=== PATIENT | female | born 1950 | race Caucasian/White ===

== ENCOUNTER → 2016-03-17 | Outpatient (CLI) | payer OTHER ==
[~2016-03-17] MED LIST: AMLO2.5T PO; ESTR1TAB3 PO; PROAIR HFA8.5 GM IH
--- NOTE | 2016-03-17 16:38 | KCIC ---
PROCEDURE Two-view chest. HISTORY Persistent dry cough. Influenza A last week. COMPARISON None. FINDINGS Cardiomediastinal silhouette is normal. There are bilateral perihilar reticular opacities. No pleural effusion or pneumothorax. There is right-sided lumbar fusion hardware, partially seen. IMPRESSION Bilateral perihilar reticular opacities. Bronchitis or atypical pneumonia or mild edema are considerations. Suggest radiographic follow-up. Electronically signed by: Papito Mcgrath MD (Mar 17, 2016 16:37:20)
== END | disposition home or self-care (01) ==
LOC: KCIC 16:05
PROVIDERS: ATTEND Physician Assistant Medical
DX: J40 Bronchitis, not specified as acute or chronic (principal); J18.9 Pneumonia, unspecified organism; J11.1 Influenza due to unidentified influenza virus with other respiratory manifestations; M43.26 Fusion of spine, lumbar region; R60.9 Edema, unspecified
CPT/HCPCS: 71020

== ENCOUNTER → 2016-03-31 | Outpatient (CLI) | payer OTHER ==
[~2016-03-31] MED LIST changes: +IOHEXOL 300 MG/ML 100ML VIAL. IV ONE
--- NOTE | 2016-03-31 16:12 | KCIC ---
PROCEDURE CT chest with contrast. HISTORY Influenza A, pneumonia. Cough. Abnormal chest radiograph. TECHNIQUE Helical CT imaging of the chest is performed after 95 cc Omnipaque 300 IV contrast. PQRS: One or more the following individualized dose reduction techniques were utilized for the study: 1. Automated exposure control. 2. Adjustment of the mA and/or kV according to patient size. 3. Use of iterative reconstruction technique. COMPARISON Two-view chest, March 17, 2016. FINDINGS Thyroid is symmetric. Bilateral breast implants are intact. There are sub centimeter mediastinal lymph nodes and left hilar lymph nodes. There is no adenopathy. Cardiac size normal, no pericardial effusion. Great vessels are normal caliber. No pleural effusion. Central airways are patent. There are patchy ground-glass opacities in the upper lobes mainly anteriorly. No lung consolidation is seen. No micro nodules are identified. Gallbladder is contracted. Visualized abdomen otherwise unremarkable. Posterior fusion hardware on the right of L2, partially seen. Degenerative endplate spurring in the thoracic spine. IMPRESSION Mild patchy ground-glass opacities in the upper lobes mainly anteriorly. Given history, the opacities are probably infectious/inflammatory. There has likely been improvement since the chest radiograph. Recommend noncontrast CT chest in a few months to document resolution. Electronically signed by: Papito Mcgrath MD (Mar 31, 2016 16:11:43)
== END | disposition home or self-care (01) ==
LOC: KCIC CT 15:28
PROVIDERS: ATTEND Physician Assistant Medical
DX: J98.4 Other disorders of lung (principal); R59.0 Localized enlarged lymph nodes
CPT/HCPCS: 71260; Q9967

== ENCOUNTER → 2016-04-04 | Outpatient (CLI) | payer OTHER ==
[~2016-04-04] MED LIST changes: -IOHEXOL 300 MG/ML 100ML VIAL. IV ONE
--- NOTE | 2016-04-07 16:11 | KCIC ---
Bilateral digital screening mammograms with CAD: HISTORY COMPARISON Comparison is made to previous studies dated back to 05/22/2013. FINDINGS Breast density category B. The skin and nipples show no abnormalities. No abnormal lymph nodes are seen in the axilla. Bilateral breast implants remain in place and show no definite change. The breast parenchyma shows scattered fibroglandular density. There continues to be a small nodular density posteriorly at the level of the nipple adjacent to the pectoralis muscle on the left obliques implant displacement view which has not shown significant interval change since 2015. There are no new dominant masses, suspicious calcifications or architectural distortions. Benign appearing calcifications are present IMPRESSION No evidence of malignancy. Recommend routine annual mammographic screening. This study was interpreted with the benefit of Computerized Aided Detection (CAD). Mammography is not 100% sensitive in detecting breast cancer. Therefore, a self breast exam and a clinical breast exam are very important. A negative mammogram does not negate a clinically suspicious finding and should not result in a delay in biopsying a clinically suspicious abnormality. BI-RADS category 2. Benign. This patient's information has been entered into a reminder system for the patient to be notified with the results of this examination and a target date for her next mammograms. Electronically signed by: Dottie Sosa MD (Apr 07, 2016 16:09:34)
== END | disposition home or self-care (01) ==
LOC: KCIC MAMMO 17:28
PROVIDERS: ATTEND Obstetrics & Gynecology
DX: Z12.31 Encounter for screening mammogram for malignant neoplasm of breast (principal)
CPT/HCPCS: G0202; 77067

== ENCOUNTER → 2016-07-29 | Outpatient (CLI) | payer OTHER ==
[~2016-07-29] MED LIST changes: +IOHEXOL 300 MG/ML 100ML VIAL. IV ONE
--- NOTE | 2016-07-29 11:37 | KCIC ---
Examination: CT chest with IV contrast HISTORY: History of follow-up abnormal CT chest, patchy opacities in the bilateral upper lobes COMPARISON: 03/28/2016 TECHNIQUE: Axial CT images of chest were performed with IV contrast. Coronal and sagittal images was performed Exposure: One or more of the following individualized dose reduction techniques were utilized for this examination: 1. Automated exposure control 2. Adjustment of the mA and/or kV according to patient size 3. Use of iterative reconstruction technique FINDINGS: The visualized thyroid gland grossly appears unremarkable. The central airways are patent. Mild cardiomegaly. Ascending aorta measures 3.4 x 3.2 cm. No evidence of pericardial effusion. The previously visualized patchy ground glass airspace opacities have near completely resolved with residual minimal tiny focus of groundglass airspace opacity identified in the right upper lobe of the lung measuring 1 cm. No evidence of pleural effusion or pneumothorax. Bilateral breast prosthesis is identified. The visualized liver, spleen, adrenals grossly appears unremarkable. Mild degenerative changes identified in thoracic spine. Partially visualized heart identified in the upper lumbar vertebra. IMPRESSION: 1. Interval near complete resolution of patchy ground glass airspace opacities in the bilateral upper lobes of the lungs. There is a residual minimal 1 cm ground glass opacity identified in the right upper lobe of the lung. Follow-up examination in 3-6 months is recommended to document stability/resolution. Electronically signed by: Miguel Albert MD (07/29/2016 11:34 AM)
== END | disposition home or self-care (01) ==
LOC: KCIC CT 10:13
PROVIDERS: ATTEND Family Medicine
DX: R05 Cough (principal); R93.8 Abnormal findings on diagnostic imaging of other specified body structures; Z87.891 Personal history of nicotine dependence
CPT/HCPCS: 71260; Q9967

== ENCOUNTER → 2016-12-19 | Outpatient (CLI) | payer MEDICARE, OTHER ==
[~2016-12-19] MED LIST changes: +APIX2.5T PO; +FAMO20TA5 PO; +HYDR-963 PO; -IOHEXOL 300 MG/ML 100ML VIAL. IV ONE; +OMEP20TA8 PO; +OXYC1TAB9 PO; +PRED50TA PO; +TRAM50TA PO
--- NOTE | 2016-12-19 14:27 | KCIC ---
Bone mineral density exam History: Postmenopausal, takes calcium supplement, osteoporosis, hysterectomy Comparison: 12/28/2005 of the left hip Findings: Bone mineral density examination utilizing DEXA was performed. Left hip bone mineral density of 0.805 g/cm2 corresponds with a T score -1.1, Z score 0.1. Compared with the previous exam, there has been -2.4% decrease. The bone mineral density of the right forearm was 0.497 g/cm2 which corresponds with a T-score of -1.3, Z score 0.4 . By World Congress on Osteoporosis criteria, a T score of 0 to-1 SD is considered to be within normal limits. A T score of -1 to -2.5 SD is considered osteopenia. A T score less than -2.5 SD is considered osteoporosis Impression: 1. There is osteopenia of the right forearm and the left hip. Electronically signed by: Darron Martin MD (12/19/2016 2:24 PM) [facility]
== END | disposition home or self-care (01) ==
LOC: KCIC DEXA 13:18
PROVIDERS: ATTEND Family Medicine
DX: M85.831 Other specified disorders of bone density and structure, right forearm (principal); M81.0 Age-related osteoporosis without current pathological fracture; Z78.0 Asymptomatic menopausal state; Z90.710 Acquired absence of both cervix and uterus
CPT/HCPCS: 77080; 77081

== ENCOUNTER 2016-12-20 08:40 | Inpatient (IN) | payer MEDICARE, OTHER ==
[2016-12-20] VITALS (8 sets, daily range): BP systolic 107–116; BP diastolic 62–71
[~2016-12-20] VITALS: Ht 160 cm; Wt 64.4 kg
[~2016-12-20 08:40] MED LIST changes: -APIX2.5T PO; +CELECOXIB 200 MG CAPSULE. PO PRN; -FAMO20TA5 PO; -HYDR-963 PO; +HYDROcodone/APAP 7.5/325MG 1 TAB TABLET PO PRN; +HYDROmorphone 2 MG/ML VIAL IV PRN; +IV RINGERS,LACTATED 1000ML 1,000 ML IV SCH; +LIDOCAINE 1% PF 2 ML VIAL. ID PRN; +MORPHINE SULFATE 5 MG, KETOROLAC 30 MG, ROPIVacaine 0.5% PF 60 ML, EPINEPHrine 0.5 MG i... INT ART ONE; +ONDANSETRON PF 4 MG/2 ML VIAL. IV PRN; -OXYC1TAB9 PO; -PRED50TA PO; +PROCHLORPERAZINE 10 MG/2 ML VIAL. IV PRN; +TRANEXAMIC ACID 1,000 MG in IV NS 50ML -- 1ST BAG INJ ONE; +TRANEXAMIC ACID 1,000 MG in IV NS 50ML -- 2ND BAG INJ ONE; +fentaNYL PF VIAL 100 MCG/2 ML VIAL IV PRN
[2016-12-20] MEDS ORDERED: SEVOFLURANE 61 TO 120 MINUTES. IH ONE (10:20)
[2016-12-20] MEDS ORDERED: PROPOFOL 20 ML IV ONE (10:20)
[2016-12-20] MEDS ORDERED: fentaNYL PF VIAL 100 MCG/2 ML VIAL ONE (10:20)
[2016-12-20] MEDS ORDERED: MIDAZOLAM HCL/PF 2 MG/2 ML VIAL. ONE (10:20)
[2016-12-20] MEDS ORDERED: ONDANSETRON PF 4 MG/2 ML VIAL. ONE (10:21)
[2016-12-20] MEDS ORDERED: DEXAMETHASONE SOD PHOS 20 MG/5 ML VIAL. ONE (10:21)
[2016-12-20] MEDS ORDERED: ROCURONIUM 50 MG/5 ML VIAL. ONE (10:23)
[2016-12-20] MEDS ORDERED: PHENYLEPHRINE in 0.9% NACL PF 1 MG/10 ML DISP.SYRIN. IV ONE (11:41)
[2016-12-20] MEDS ORDERED: fentaNYL PF VIAL 100 MCG/2 ML VIAL IV PRN ×2 (14:15)
[2016-12-20] MEDS ORDERED: traMADol 50 MG TABLET PO PRN ×2 (14:15)
[2016-12-20] MEDS ORDERED: MORPHINE SULFATE 10 MG/ML VIAL. IV PRN (14:15)
[2016-12-20] MEDS ORDERED: CALCIUM CARBONATE 500 MG TAB.CHEW PO PRN (14:15)
[2016-12-20] MEDS ORDERED: ZOLPIDEM 5 MG TABLET. PO PRN (14:15)
[2016-12-20] MEDS ORDERED: PROCHLORPERAZINE 10 MG/2 ML VIAL. IV PRN (14:15)
[2016-12-20] MEDS ORDERED: diphenhydrAMINE 50 MG/ML VIAL IV PRN (14:15)
[2016-12-20] MEDS ORDERED: oxyCODONE/APAP 5/325 1 TAB TABLET PO PRN (14:15)
[2016-12-20] MEDS ORDERED: ACETAMINOPHEN 325 MG TABLET. PO PRN (14:15)
[2016-12-20] MEDS ORDERED: MORPHINE SULFATE 4 MG/ML DISP.SYRIN. IV PRN ×3 (14:15)
[2016-12-20] MEDS ORDERED: oxyCODONE/APAP 7.5/325 1 TAB TABLET PO PRN (14:15)
[2016-12-20] MEDS ORDERED: DEXTROSE 50% 25 GM / 50ML DISP.SYRIN. IV PRN (14:15)
[2016-12-20] MEDS ORDERED: 0.9 % SODIUM CHLORIDE 10 ML DISP.SYRIN. IV PRN (14:15)
[2016-12-20] MEDS ORDERED: ceFAZolin SODIUM 1 GM in IV DEXTROSE 5% 50 ML IV SCH (14:15)
[2016-12-20] MEDS ORDERED: NON FORMULARY ITEM (Albuterol Sulfate (Proair Hfa Inhaler) 2 PUFF) IH SCH (14:15)
--- NOTE | 2016-12-20 14:23 | PDOC4 ---
Operative Note Operative Note Date of surgery: 12/20/2016 Preoperative diagnosis: Painful unicondylar left knee arthroplasty Postoperative diagnosis same Operative procedure: Revision left knee unicondylar arthroplasty to total knee arthroplasty Surgeon: Demetrius Anesthesia: Gen. endotracheal Estimated blood loss 250 mL Complications: None Specimens: Cartilage surfaces to pathology removed components Operative indications: Patient is a 66-year-old female with a painful unicondylar knee arthroplasty on the left. I had gone over with her my concern of both instability and lateral wear causing her pain issues that are very limiting to her activities of daily living. I went over the possibility of a conversion to total knee arthroplasty and possible complications of infection nerve or blood vessel damage medical or other anesthetic complications continued pain among others all her questions were answered she wants proceed with surgical evaluation and treatment Operative text: Patient was identified procedure verified patient placed in the supine position on the operating table after adequate amounts of general endotracheal anesthesia were administered a thigh tourniquet was placed on the left lower extremity and the left lower extremity was prepped and draped in standard sterile fashion. Preoperative examination confirmed the instability and Mich and anterior drawer that I was concerned about or read after timeout was performed patient procedure identified and verified a curvilinear incision was made over the medial aspect of the knee corresponding to her previous unicondylar arthroplasty incision which was extended superiorly medial parapatellar approach was carried out fat pad was excised patella was everted she was noted to have some in addition to her instability impingement of the mobile bearing surface on the anterior portion of the knee in extension and on posterior portion of the tibia and soft tissues in flexion. She did have lateral where as expected as well. Based on her intraoperative findings we did proceed with conversion to a total knee arthroplasty in the unicondylar arthroplasty was well fixed and removed from the femoral component with a minimum of bone loss likewise from the tibial side minimum of bone loss was noted distal femoral cut was made in the standard fashion chamfer cuts were made for a size 4 [employer] prosthesis tibial cut was made with the extra medullary cutting jig and excellent ligament balance was noted in both flexion and extension varus and valgus. A size 4 tibial tray was pinned into place drilled and broached trial femoral component was placed and again excellent motion stability of ligament balance was noted throughout the box cut was previously made bleeding points controlled by electrocautery a biconvex patella was reamed and noted to have excellent tracking the lateral portion of the patellar bone was removed to prevent any impingement. Trial components were removed thorough irrigation carried out normal saline solution bleeding points controlled throughout the capsule by the aqua Mantis device and the following components were cemented into place with polymethylmethacrylate cement a size 4 standard tibia and Oxinium size 4 bicruciate stabilized journey 2 femoral component and a size 20 mm biconvex patella. 13 mm spacer was placed temporarily after cement was removed and when cement was dry thorough irrigation again carried out normal saline solution and a size 13 mm journey 2 posterior stabilized articular insert was snapped into place excellent motion ligament balance patellofemoral tracking were noted throughout Hemovac drain was placed as well as a pain catheter pain catheter mixture was injected throughout the joint retinacular closure accomplished with #5 Ethibond suture and running #1 PDS strata fix subcutaneous closure accomplished with buried Vicryl suture subcuticular 3-0 Monocryl strata fix a dante drain was applied patient was returned recovery room in stable condition having tolerated procedure well the tourniquet was not inflated throughout the procedure JADON HORTON MD Dec 20, 2016 14:23
[2016-12-20] MEDS: fentaNYL PF VIAL 100 MCG/2 ML VIAL IV PRN ×2 (14:25→14:35)
[2016-12-20] MEDS ORDERED: ALBUTEROL SULFATE 2.5 MG/3 ML NEBU. NEB PRN (14:45)
[2016-12-20] MEDS ORDERED: MORPHINE SULFATE 4 MG/ML DISP.SYRIN. ONE (14:56)
[2016-12-20] MEDS: MORPHINE SULFATE 4 MG/ML DISP.SYRIN. IV PRN ×3 (14:59→15:26)
--- NOTE | 2016-12-20 15:29 | RAD ---
Left knee, 2 views, 12/20/2016: History: Postop knee replacement. A total left knee prosthesis has been placed in satisfactory position. A surgical drain overlies the operative site anteriorly. There is no evidence of a retained surgical instrument, needle or radiopaque sponge on these 2 views.
[2016-12-20] MEDS ORDERED: WARFARIN 7.5 MG TABLET. PO ONE (16:00)
[2016-12-20] MEDS: IV DEXTROSE 5 %-0.45 % NACL 1,000 ML IV SCH ×2 (16:00→20:49)
[2016-12-20] MEDS: HYDROcodone/APAP 7.5/325MG 1 TAB TABLET PO PRN ×2 (16:33→20:50)
[2016-12-20 16:55] LABS: INR 1.1 (0.8-1.1); PROTHROMBIN TIME PATIENT 13.6 SEC (11.7-14.0)
[2016-12-20] MEDS: FERROUS SULFATE 325 MG TABLET. PO SCH (18:57)
[2016-12-20] MEDS: KETOROLAC 30 MG, BUPIVACAINE MPF 0.25% 20 ML, EPINEPHrine 0.5 MG in TOTAL VOLUME SYRING... INT ART SCH (18:58)
[2016-12-20] MEDS: ceFAZolin SODIUM IV Push 1 GM VIAL. IVP SCH (18:58)
[2016-12-20] MEDS: CELECOXIB 200 MG CAPSULE. PO SCH (20:53)
[2016-12-21] MEDS: HYDROcodone/APAP 7.5/325MG 1 TAB TABLET PO PRN ×3 (00:13→12:50)
[2016-12-21 03:31] VITALS: BP 92/53
[2016-12-21] MEDS: KETOROLAC 30 MG, BUPIVACAINE MPF 0.25% 20 ML, EPINEPHrine 0.5 MG in TOTAL VOLUME SYRING... INT ART SCH (05:24)
[2016-12-21 05:31] LABS: INR 1.1 (0.8-1.1); PROTHROMBIN TIME PATIENT 13.7 SEC (11.7-14.0)
[2016-12-21 05:34] LABS: HEMATOCRIT 33.7 % (36.0-47.0); HEMOGLOBIN 11.2 g/dL (12.0-15.5)
[2016-12-21] MEDS ORDERED: MAGNESIUM HYDROXIDE 2,400 MG/30 ML ORAL.SUSP. PO PRN (06:00)
[2016-12-21] MEDS: ceFAZolin SODIUM IV Push 1 GM VIAL. IVP SCH ×2 (06:02)
[2016-12-21 06:31] VITALS: BP 100/60
[2016-12-21] MEDS: PANTOPRAZOLE 40 MG TABLET.DR. PO SCH (07:03)
[2016-12-21] MEDS: MULTIVITAMIN with MINERAL TABLET. PO SCH (09:02)
[2016-12-21] MEDS: ESTROGEN/M-PROGEST 0.3/1.5MG TABLET. PO SCH (09:02)
[2016-12-21] MEDS: SENNOSIDES/DOCUSATE 8.6/50MG TABLET. PO SCH (09:02)
[2016-12-21] MEDS: FERROUS SULFATE 325 MG TABLET. PO SCH ×2 (09:02→16:50)
[2016-12-21] MEDS: CELECOXIB 200 MG CAPSULE. PO SCH ×2 (09:02→20:56)
[2016-12-21] MEDS ORDERED: WARFARIN 5 MG TABLET. PO ONE (16:00)
[2016-12-21] MEDS ORDERED: BISACODYL 10 MG SUPP.RECT. PR PRN (16:00)
[2016-12-21] MEDS: HYDROcodone/APAP 10/325 1 TAB TABLET PO PRN (16:50)
[2016-12-21 18:09] VITALS: BP 94/52
--- NOTE | 2016-12-21 18:33 | PDOC ---
PROGRESS NOTES Subjective Subjective Problems overnight: Doing very well with physical therapy pain controlled no other complaints Objective Vital Signs Vital Signs Date Time Temp Pulse Resp B/P (MAP) Pulse Ox O2 Delivery O2 Flow Rate FiO2 12/21/16 18:09 98.2 68 18 94/52 (66) 97 Room Air 98.2 12/20/16 17:30 2.0 Physical Exam Hemovac drain had pulled out and was redressed dante with no drainage whatsoever she has excellent range of motion ligament balance intact distal neurovascular status Labs Laboratory Tests Test 12/20/16 16:38 12/21/16 05:02 Prothrombin Time 13.6 SEC (11.7-14.0) 13.7 SEC (11.7-14.0) Prothromb Time International Ratio 1.1 (0.8-1.1) 1.1 (0.8-1.1) Hemoglobin 11.2 g/dL (12.0-15.5) Hematocrit 33.7 % (36.0-47.0) Mean Corpuscular Hemoglobin Concent 33 g/dL (31-37) Laboratory Tests Test 12/21/16 05:02 Hemoglobin 11.2 g/dL (12.0-15.5) Hematocrit 33.7 % (36.0-47.0) Mean Corpuscular Hemoglobin Concent 33 g/dL (31-37) Prothrombin Time 13.7 SEC (11.7-14.0) Prothromb Time International Ratio 1.1 (0.8-1.1) Assessment Assessment POD# [1], S/P [revision unicondylar to total knee arthroplasty] Problems: Plan Plan of Care Continue mobilize with physical therapy standard total knee protocol Eliquis for anticoagulation Anticipated discharge tomorrow if doing well with physical therapy JADON HORTON MD Dec 21, 2016 18:33
[2016-12-21] MEDS: APIXABAN 2.5 MG TABLET. PO SCH (20:57)
[2016-12-22] MEDS: HYDROcodone/APAP 10/325 1 TAB TABLET PO PRN ×4 (02:44→19:21)
[2016-12-22 06:13] VITALS: BP 99/64
[2016-12-22 06:13] LABS: HEMATOCRIT 28.7 % (36.0-47.0); HEMOGLOBIN 9.6 g/dL (12.0-15.5)
[2016-12-22 06:33] LABS: INR 1.3 (0.8-1.1); PROTHROMBIN TIME PATIENT 15.4 SEC (11.7-14.0)
[2016-12-22] MEDS: PANTOPRAZOLE 40 MG TABLET.DR. PO SCH (07:06)
[2016-12-22] MEDS: FERROUS SULFATE 325 MG TABLET. PO SCH ×2 (08:00→17:00)
[2016-12-22] MEDS: POLYETHYLENE GLYCOL 3350 17 GM PACKET. PO PRN (08:33)
[2016-12-22] MEDS: APIXABAN 2.5 MG TABLET. PO SCH ×2 (08:33→20:30)
[2016-12-22] MEDS: MULTIVITAMIN with MINERAL TABLET. PO SCH (08:33)
[2016-12-22] MEDS: CELECOXIB 200 MG CAPSULE. PO SCH ×2 (08:33→20:29)
[2016-12-22] MEDS: ESTROGEN/M-PROGEST 0.3/1.5MG TABLET. PO SCH (08:34)
[2016-12-22] MEDS: SENNOSIDES/DOCUSATE 8.6/50MG TABLET. PO SCH (08:37)
--- NOTE | 2016-12-22 11:52 | PATHOLOGY ---
PATHOLOGY REPORT * * * * * * * * FINAL DIAGNOSIS: Segments of bone and soft tissue, left total knee arthroplasty: - Advanced degenerative arthritis. (JPM:pit; 12/22/2016) REPORT ELECTRONICALLY SIGNED BY: Rao Lugo M.D. DATE/TIME: 12/22/2016 11:51 * * * * * * * * GROSS PATHOLOGY: Received in formalin labeled "Latonya Soto, left knee bone and tissue," are multiple segments of bone, including tibial plateau, measuring 14.8 x 12.8 x 2.9 cm in aggregate dimensions admixed with soft tissue; meniscus is present. The specimen shows focal eburnation of the articular surfaces. [employer] sections of bone and soft tissue are submitted in cassette A1, following decalcification. (DAC; 12/21/2016) INITIAL CPT CODE(S): A; 21681, 39989 Professional services performed [place] [facility] [place] [address] Technical services performed by [facility] at [address] [place] [address]. SPECIMEN(S) RECEIVED: A.Left knee bone and tissue CLINICAL HISTORY: OA PATIENT: LATONYA SOTO /AGE: 7 1950 (Age: 66) PATIENT #: [id number] ALT CASE #: SPECIMEN COLLECTION DATE: 12/20/2016 SPECIMEN RECEIVED DATE: 12/20/2016 [facility] - [address] [place] [address] - PHONE: [phone] * * * END OF REPORT * * *
[2016-12-22] MEDS: ANTI-COAG MONITOR BY PHARMACY. MC PRN (11:55)
--- NOTE | 2016-12-22 13:30 | PDOC ---
ORTHO PROGRESS NOTES Subjective Patient is having a little bit more pain today. She complains of constipation. Overall regressing with therapy. Denies CP/SOB Post-op Day: 2 (Status post left total knee arthroplasty) Vitals Vital Signs Date Time Temp Pulse Resp B/P (MAP) Pulse Ox O2 Delivery O2 Flow Rate FiO2 12/22/16 12:52 Room Air 12/22/16 06:13 97.6 71 20 99/64 (76) 95 97.6 Labs Laboratory Tests Test 12/20/16 16:38 12/21/16 05:02 12/22/16 05:50 Prothrombin Time 13.6 SEC (11.7-14.0) 13.7 SEC (11.7-14.0) 15.4 SEC (11.7-14.0) Prothromb Time International Ratio 1.1 (0.8-1.1) 1.1 (0.8-1.1) 1.3 (0.8-1.1) Hemoglobin 11.2 g/dL (12.0-15.5) 9.6 g/dL (12.0-15.5) Hematocrit 33.7 % (36.0-47.0) 28.7 % (36.0-47.0) Mean Corpuscular Hemoglobin Concent 33 g/dL (31-37) 33 g/dL (31-37) Laboratory Tests Test 12/22/16 05:50 Hemoglobin 9.6 g/dL (12.0-15.5) Hematocrit 28.7 % (36.0-47.0) Mean Corpuscular Hemoglobin Concent 33 g/dL (31-37) Prothrombin Time 15.4 SEC (11.7-14.0) Prothromb Time International Ratio 1.3 (0.8-1.1) Problems: (1) Left knee DJD Assessment and Plan Continue PT OT, weightbearing as tolerated Anticoagulation per pharmacy Pain controlled We have medications available to help with constipation, she is passing gas so I believe is just a matter of time. Anticipate discharge tomorrow Problem Qualifiers (1) Left knee DJD: Osteoarthritis type: primary Qualified Codes: M17.12 - Unilateral primary osteoarthritis, left knee ANIL GUADARRAMA APRN Dec 22, 2016 13:30
[2016-12-22 18:10] VITALS: BP 85/63
[2016-12-22 19:00] VITALS: BP 108/71
[2016-12-23] MEDS: HYDROcodone/APAP 10/325 1 TAB TABLET PO PRN ×4 (00:22→15:28)
[2016-12-23 05:36] LABS: INR 1.2 (0.8-1.1); PROTHROMBIN TIME PATIENT 14.4 SEC (11.7-14.0)
[2016-12-23 05:40] LABS: HEMATOCRIT 27.7 % (36.0-47.0); HEMOGLOBIN 9.4 g/dL (12.0-15.5)
[2016-12-23] MEDS: PANTOPRAZOLE 40 MG TABLET.DR. PO SCH (05:57)
[2016-12-23 06:00] VITALS: BP 108/69
[2016-12-23] MEDS: POLYETHYLENE GLYCOL 3350 17 GM PACKET. PO PRN (06:33)
[2016-12-23] MEDS: FERROUS SULFATE 325 MG TABLET. PO SCH (08:00)
[2016-12-23] MEDS: ESTROGEN/M-PROGEST 0.3/1.5MG TABLET. PO SCH (08:08)
[2016-12-23] MEDS: CELECOXIB 200 MG CAPSULE. PO SCH (08:08)
[2016-12-23] MEDS: APIXABAN 2.5 MG TABLET. PO SCH (08:08)
[2016-12-23] MEDS: MULTIVITAMIN with MINERAL TABLET. PO SCH (08:08)
[2016-12-23] MEDS: SENNOSIDES/DOCUSATE 8.6/50MG TABLET. PO SCH (08:08)
[2016-12-23] MEDS: ANTI-COAG MONITOR BY PHARMACY. MC PRN (10:29)
[2016-12-23] MEDS ORDERED: OXYC1TAB9 PO (12:55)
--- NOTE | 2016-12-23 13:02 | DS ---
DATE OF DISCHARGE: 12/23/2016 PRINCIPAL DIAGNOSIS: Painful unstable unicondylar knee arthroplasty. OPERATIVE PROCEDURE: Revision to total knee arthroplasty. MEDICATIONS: Percocet 7.5/325 one p.o. q.4h. p.r.n. pain, Coumadin as directed by anticoagulation clinic, resume preoperative home medications. ACTIVITY: Level was weightbearing as tolerated, standard total knee precautions. Follow up with Dr. Romo in 2 weeks. DISPOSITION: Home with outpatient physical therapy. BRIEF DESCRIPTION OF HOSPITAL COURSE: The patient underwent an uncomplicated revision from a painful unicondylar knee arthroplasty to a total knee, remained medically stable, progressed well through physical therapy and is discharged today in stable condition. JADON ROMO MD DR: GERRY/yvan JOB#: [id number] / [id number] CHARLOTTE Simmons MD
[2016-12-23] MEDS ORDERED: APIX2.5T PO (13:04)
[2016-12-23 15:10] VITALS: BP 96/58
== END 2016-12-23 15:30 | disposition home or self-care (01) | DRG 468 ==
LOC: OPSVCIP 08:40 → 4 SOUTHEST 16:19
PROVIDERS: ADMIT Orthopaedic Surgery; ATTEND Orthopaedic Surgery
PROC: 0SPD0JZ Removal of Synthetic Substitute from Left Knee Joint, Open Approach (ICD-10-PCS; 2016-12-20)
PROC: 0SRD0J9 Replacement of Left Knee Joint with Synthetic Substitute, Cemented, Open Approach (ICD-10-PCS; principal; 2016-12-20 10:10)
DX: T84.84XA Pain due to internal orthopedic prosthetic devices, implants and grafts, initial encounter (principal); K59.00 Constipation, unspecified; M17.12 Unilateral primary osteoarthritis, left knee; Y83.8 Other surgical procedures as the cause of abnormal reaction of the patient, or of later complication, without mention of misadventure at the time of the procedure; Z96.652 Presence of left artificial knee joint; Y92.89 Other specified places as the place of occurrence of the external cause
CPT/HCPCS: 36415; 73560; 77080; 77081; 85014; 85018; 85610; 86850; 86900; 86901; 88305; 88311; 94250; C1713; J0171; J0690; J1100; J1885; J2250; J2270; J2370; J2405; J2704; J2795; J3010; J3490; J7030; J7120; 97116; 97150; 97530; C1769

== ENCOUNTER 2017-01-01 09:33 | Emergency (ER) | payer MEDICARE, OTHER ==
[~2017-01-01] VITALS: Ht 157.5 cm; Wt 64.4 kg
[~2017-01-01 09:33] MED LIST changes: +APIX2.5T PO; -CELECOXIB 200 MG CAPSULE. PO PRN; -HYDROcodone/APAP 7.5/325MG 1 TAB TABLET PO PRN; -HYDROmorphone 2 MG/ML VIAL IV PRN; -IV RINGERS,LACTATED 1000ML 1,000 ML IV SCH; -LIDOCAINE 1% PF 2 ML VIAL. ID PRN; -MORPHINE SULFATE 5 MG, KETOROLAC 30 MG, ROPIVacaine 0.5% PF 60 ML, EPINEPHrine 0.5 MG i... INT ART ONE; -ONDANSETRON PF 4 MG/2 ML VIAL. IV PRN; +OXYC1TAB9 PO; -PROCHLORPERAZINE 10 MG/2 ML VIAL. IV PRN; -TRANEXAMIC ACID 1,000 MG in IV NS 50ML -- 1ST BAG INJ ONE; -TRANEXAMIC ACID 1,000 MG in IV NS 50ML -- 2ND BAG INJ ONE; -fentaNYL PF VIAL 100 MCG/2 ML VIAL IV PRN
[2017-01-01 09:43] VITALS: BP 132/83
[2017-01-01] MEDS ORDERED: methylPREDNISolone SOD SUCC PF 125 MG/2 ML VIAL. IM ONE (10:15)
[2017-01-01] MEDS ORDERED: FAMOTIDINE 20 MG TABLET. PO ONE (10:15)
[2017-01-01] MEDS ORDERED: FAMO20TA5 PO (10:25)
[2017-01-01] MEDS ORDERED: PRED50TA PO (10:25)
--- NOTE | 2017-01-01 10:25 | PHYS DOC ---
Past Medical History Past Medical History: No Pertinent History Past Surgical History: Knee Replacement Adult General Chief Complaint Chief Complaint: ITCHING HPI HPI Patient is a 66 year old female who presents with generalized itching that began after she started taking Xarelto and Percocet post left knee replacement on December 20, 2016. Patient states she had to suspect the Percocet is the source of her itching. Patient is actively itching in the ED. Patient denies any difficulty breathing throat tongue or lip swelling. Review of Systems Review of Systems Constitutional: Denies fever or chills [] Eyes: Denies change in visual acuity, redness, or eye pain [] HENT: Denies nasal congestion or sore throat [] Respiratory: Denies cough or shortness of breath [] Cardiovascular: No additional information not addressed in HPI [] GI: Denies abdominal pain, nausea, vomiting, bloody stools or diarrhea [] : Denies dysuria or hematuria [] Musculoskeletal: Left knee replacement December 20, 2016 Integument: Itching Neurologic: Denies headache, focal weakness or sensory changes [] All other systems were reviewed and found to be within normal limits, except as documented in this note. Current Medications Current Medications Current Medications Medications (Trade) Dose Ordered Sig/Any Start Time Stop Time Status Last Admin Dose Admin Famotidine (Pepcid) 20 mg 1X ONCE 01/01/17 10:15 01/01/17 10:18 DC Methylprednisolone Sodium Succinate (SOLU-Medrol 125MG VIAL) 125 mg 1X ONCE 01/01/17 10:15 01/01/17 10:18 DC Allergies Allergies Allergies Coded Allergies Type Severity Reaction Last Updated Verified meperidine Adverse Reaction Mild NAUSEA/VOMITING 12/20/16 Yes Physical Exam Physical Exam Constitutional: Well developed, well nourished, no acute distress, non-toxic appearance. [] HENT: Normocephalic, atraumatic, bilateral external ears normal, oropharynx moist, no oral exudates, nose normal. [] Eyes: PERRLA, EOMI, conjunctiva normal, no discharge. [] Neck: Normal range of motion, no tenderness, supple, no stridor. [] Cardiovascular:Heart rate regular rhythm, no murmur [] Lungs & Thorax: Bilateral breath sounds clear to auscultation [] Abdomen: Bowel sounds normal, soft, no tenderness, no masses, no pulsatile masses. [] Skin: Warm, dry, patient has mild amount of erythematous macular rashes throughout her body from head to toe, she is actively itching in the ED. Back: No tenderness, no CVA tenderness. [] Extremities: No tenderness, no cyanosis, no clubbing, ROM intact, no edema. [] Neurologic: Alert and oriented X 3, normal motor function, normal sensory function, no focal deficits noted. [] Psychologic: Affect normal, judgement normal, mood normal. [] Current Patient Data Vital Signs Vital Signs Date Time Temp Pulse Resp B/P (MAP) Pulse Ox O2 Delivery O2 Flow Rate FiO2 01/01/17 09:43 98.3 97 18 132/83 (99) 96 Room Air 98.3 EKG EKG [] Radiology/Procedures Radiology/Procedures [] Course & Med Decision Making Course & Med Decision Making Pertinent Labs and Imaging studies reviewed. (See chart for details) Patient has a rash that began after she was put on Percocet and Xarelto post left knee replacement on December 20, 2016. We highly suspect the Percocet is the source of her itching. She was instructed to stop taking the Percocet. She has tried taking Benadryl with no relief. She was given Solu-Medrol and Pepcid in the ED. She took Benadryl prior to arrival. She was discharged with prednisone Pepcid and Benadryl. She was switched from Percocet to hydrocodone. She has an appointment with her orthopedic doctor on Monday this week. She was provided return precautions and discharged in stable condition. Dragon Disclaimer Dragon Disclaimer This electronic medical record was generated, in whole or in part, using a voice recognition dictation system. Departure Departure Impression: Primary Impression: Allergic reaction caused by a drug Disposition: HOME, SELF-CARE Condition: STABLE Referrals: CHARLOTTE CARLSON MD (PCP) follow up with your doctor this week Patient Instructions: Drug Allergy Additional Instructions: You were seen with itching from an allergic reaction to a medication. We highly suspect Percocet is the source of the itching. We switched you to hydrocodone. Continue taking Benadryl every 4-6 hours. Take Pepcid every day until symptoms are gone. Take the prescribed prednisone. Follow-up with your doctor in the course of next week. Return to the ED symptoms worsen. Scripts Hydrocodone/Apap 10-325 (NORCO 10-325 TABLET) 1 Each Tablet 1 TAB PO Q4HRS W/A Y for PAIN, #24 TAB Prov: KESHA ALEJANDRE APRN 01/01/17 Famotidine (FAMOTIDINE) 20 Mg Tablet 20 MG PO DAILY, #14 TAB Prov: KESHA ALEJANDRE APRN 01/01/17 Prednisone (PREDNISONE) 50 Mg Tablet 1 TAB PO DAILY, #5 TAB Prov: KESHA ALEJANDRE APRN 01/01/17 Problem Qualifiers Primary Impression: Allergic reaction caused by a drug Encounter type: initial encounter Qualified Codes: T78.40XA - Allergy, unspecified, initial encounter EKSHA ALEJNADRE APRN Jan 01, 2017 10:25
[2017-01-01] MEDS ORDERED: HYDR-963 PO (10:30)
[2017-01-01] MEDS ORDERED: HYDROcodone/APAP 10/325 1 TAB TABLET PO ONE (10:30)
== END 2017-01-01 10:48 | disposition home or self-care (01) ==
LOC: ER 09:33
DX: L29.9 Pruritus, unspecified (principal); T45.515A Adverse effect of anticoagulants, initial encounter; T39.1X5A Adverse effect of 4-Aminophenol derivatives, initial encounter; Z96.652 Presence of left artificial knee joint; Z88.8 Allergy status to other drugs, medicaments and biological substances; Y92.89 Other specified places as the place of occurrence of the external cause
CPT/HCPCS: 96372; 99284; J2930

== ENCOUNTER → 2017-03-17 | Outpatient (CLI) | payer MEDICARE, OTHER ==
[2017-03-17 09:10] LABS: CREATININE 0.8 mg/dL (0.6-1.0)
[2017-03-17] MEDS: IOHEXOL 300 MG/ML 100ML VIAL. IV ×2 (09:19)
== END | disposition home or self-care (01) ==
LOC: CT 08:26
DX: I25.10 Atherosclerotic heart disease of native coronary artery without angina pectoris (principal); K82.8 Other specified diseases of gallbladder; F17.210 Nicotine dependence, cigarettes, uncomplicated
CPT/HCPCS: 36415; 71260; 82565

== ENCOUNTER → 2017-04-05 | Outpatient (CLI) | payer MEDICARE, OTHER | END | disposition home or self-care (01) | LOC: KCIC MAMMO 10:36 | DX: Z12.31 Encounter for screening mammogram for malignant neoplasm of breast (principal) | CPT/HCPCS: 77063; 77067 ==

== ENCOUNTER → 2017-05-19 | Outpatient (CLI) | payer MEDICARE, OTHER | END | disposition home or self-care (01) | LOC: US 09:29 | DX: I65.23 Occlusion and stenosis of bilateral carotid arteries (principal); Z87.891 Personal history of nicotine dependence | CPT/HCPCS: 70544; 70551; 93880 ==

== ENCOUNTER → 2017-05-22 | Outpatient (CLI) | payer MEDICARE, OTHER | END | disposition home or self-care (01) | LOC: ECHO 09:02 | DX: I63.8 Other cerebral infarction (principal); I36.1 Nonrheumatic tricuspid (valve) insufficiency; Z87.891 Personal history of nicotine dependence | CPT/HCPCS: 93306; C8929 ==

== ENCOUNTER 2017-06-09 02:59 | Emergency (ER) | payer MEDICARE, OTHER ==
[2017-06-09] MEDS: methylPREDNISolone SOD SUCC PF 125 MG/2 ML VIAL. IV (03:28)
[2017-06-09] MEDS: FAMOTIDINE 20 MG TABLET. PO (03:28)
[2017-06-09 03:29] LABS: ADD MAN DIFF? NO
[2017-06-09 03:31] LABS: BASO # 0.1 x10^3/uL (0.0-0.2); BASO % 1 % (0-3); EOS # 0.2 x10^3/uL (0.0-0.7); EOS % 2 % (0-3); HEMATOCRIT 46.3 % (36.0-47.0); HEMOGLOBIN 15.7 g/dL (12.0-15.5); LYMPH # 1.6 x10^3/uL (1.0-4.8); LYMPH % 14 % (24-48); MEAN CORPUSCULAR HEMOGLOBIN 29 pg (25-35); MEAN CORPUSCULAR HGB CONC 34 g/dL (31-37); MEAN CORPUSCULAR VOLUME 87 fL (79-100); MONO # 0.8 x10^3/uL (0.0-1.1); MONO % 7 % (0-9); NEUT # 9.1 x10^3uL (1.8-7.7); NEUT % 77 % (31-73); PLATELET COUNT 200 x10^3/uL (140-400); RED BLOOD COUNT 5.35 x10^6/uL (3.50-5.40); WHITE BLOOD COUNT 11.8 x10^3/uL (4.0-11.0)
[2017-06-09 03:47] LABS: ANION GAP 10 (6-14); BLOOD UREA NITROGEN 11 mg/dL (7-20); BUN/CREATININE RATIO 12 (6-20); CALCIUM 8.6 mg/dL (8.5-10.1); CARBON DIOXIDE 26 mmol/L (21-32); CHLORIDE 102 mmol/L (98-107); CREATININE 0.9 mg/dL (0.6-1.0); GFR 62.8; GLUCOSE 92 mg/dL (70-99); SODIUM 138 mmol/L (136-145)
[2017-06-09 03:50] LABS: ALBUMIN 4.1 g/dL (3.4-5.0); ALBUMIN/GLOBULIN RATIO 1.2 (1.0-1.7); ALK PHOS 117 U/L (46-116); ALT (SGPT) 28 U/L (14-59); AST (SGOT) 27 U/L (15-37); CREATINE KINASE 81 U/L (26-192); TOTAL BILIRUBIN 1.1 mg/dL (0.2-1.0); TOTAL PROTEIN 7.5 g/dL (6.4-8.2)
== END 2017-06-09 04:41 | disposition home or self-care (01) ==
LOC: ER 02:59
DX: L50.9 Urticaria, unspecified (principal); E78.00 Pure hypercholesterolemia, unspecified; I10 Essential (primary) hypertension; Z86.73 Personal history of transient ischemic attack (TIA), and cerebral infarction without residual deficits; Z79.02 Long term (current) use of antithrombotics/antiplatelets; Z88.8 Allergy status to other drugs, medicaments and biological substances
CPT/HCPCS: 36415; 80053; 82550; 85025; 96374; 99284; J2930

== ENCOUNTER → 2018-04-06 | Outpatient (CLI) | payer MEDICARE, OTHER ==
[2017-06-09 03:09] VITALS: BP 121/72
[~2018-04-06] MED LIST changes: +ALBU2.5V8 IH; -AMLO2.5T PO; +AMLO2.5T5 PO; +ASPI-630 PO; +ATOR40TA PO; +CETI10TA16 PO; +CHOL5000 PO; +DEXT10TA23 PO; -ESTR1TAB3 PO; +FAMO20TA5 PO; +HYDR-3135 PO; +METO25TA4 PO; +MULT1TAB52 PO; +OMEP20TA63 PO; +OXYC-411 PO; -OXYC1TAB9 PO; +PRED20TA PO; +PRED50TA PO; +PREMPRO 0.3 MG1 EACH PO; -PROAIR HFA8.5 GM IH; +TICA90TA PO; +UBIQ75CA PO; +VITA100075 PO
--- NOTE | 2018-04-06 16:40 | KCIC ---
Bilateral digital screening mammograms with 3-D tomosynthesis: Reason for examination: Routine screening. Comparison is made to previous studies dated 04/05/2017 and 04/04/2016. Bilateral mammograms in CC and oblique projections were obtained with 2-D imaging and 3-D tomosynthesis imaging on a Siemens Inspiration unit and reviewed on the workstation. Interpretation was made with the benefit of CAD. The skin and nipples show no abnormalities. No abnormal axillary lymph nodes are seen. Bilateral breast implants remain present. The breast parenchyma shows scattered fatty and fibroglandular density. (Breast density: Category B.) There are small nodular parenchymal densities seen bilaterally which are stable. There are no new dominant masses, suspicious calcifications or architectural distortion. Impression: No evidence of malignancy. Recommend routine screening. BI-RAD Category 2: Benign. "Our facility is accredited by the [employer] Mammography Program." This patient's information has been entered into a reminder system for the patient to be notified with the results of her examination and a target date for the next mammogram. Electronically signed by: Rebecca Sosa MD (04/06/2018 4:38 PM) [id number]
== END | disposition home or self-care (01) ==
LOC: KCIC MAMMO 15:05
PROVIDERS: ATTEND Family Medicine
DX: Z12.31 Encounter for screening mammogram for malignant neoplasm of breast (principal)
CPT/HCPCS: 77063; 77067

== ENCOUNTER 2018-07-01 11:13 | Inpatient (IN) | payer MEDICARE, OTHER ==
[2018-07-01] VITALS (11 sets, daily range): BP systolic 118–175; BP diastolic 65–99
[~2018-07-01] VITALS: Ht 154.9 cm; Wt 75.4 kg
[~2018-07-01 11:13] MED LIST changes: -ASPI-630 PO; -ATOR40TA PO; -CETI10TA16 PO; -CHOL5000 PO; -DEXT10TA23 PO; -METO25TA4 PO; -MULT1TAB52 PO; -OMEP20TA63 PO; -TICA90TA PO; -UBIQ75CA PO; -VITA100075 PO
[2018-07-01] MEDS ORDERED: LIDO:MAALOX 1:1 20 ML SINGLE DOSE. SWSW ONE (11:30)
[2018-07-01 11:44] LABS: BASO # 0.1 x10^3/uL (0.0-0.2); BASO % 1 % (0-3); EOS # 0.2 x10^3/uL (0.0-0.7); EOS % 3 % (0-3); HEMATOCRIT 44.4 % (36.0-47.0); HEMOGLOBIN 14.8 g/dL (12.0-15.5); LYMPH # 2.3 x10^3/uL (1.0-4.8); LYMPH % 30 % (24-48); MEAN CORPUSCULAR HEMOGLOBIN 30 pg (25-35); MEAN CORPUSCULAR HGB CONC 34 g/dL (31-37); MEAN CORPUSCULAR VOLUME 89 fL (79-100); MONO # 0.5 x10^3/uL (0.0-1.1); MONO % 7 % (0-9); NEUT # 4.4 x10^3uL (1.8-7.7); NEUT % 59 % (31-73); PLATELET COUNT 186 x10^3/uL (140-400); RED CELL DISTRIBUTION WIDTH 13.8 % (11.5-14.5); WHITE BLOOD COUNT 7.4 x10^3/uL (4.0-11.0)
[2018-07-01 11:51] LABS: CALCIUM 9.4 mg/dL (8.5-10.1); CREATININE 0.9 mg/dL (0.6-1.0); GFR 62.6; POTASSIUM 3.2 mmol/L (3.5-5.1)
--- NOTE | 2018-07-01 11:51 | RAD ---
PORTABLE CHEST 1V Clinical indications: Chest pain COMPARISON: December 07, 2016. Findings: No acute lung infiltrate or pleural effusion or pulmonary edema or lung mass or pneumothorax is seen. The heart size, pulmonary vasculature, mediastinum and both blossom are unremarkable. Impression: No acute radiographic abnormality is seen. Electronically signed by: Craig Lezama MD (07/01/2018 11:48 AM) [facility]
[2018-07-01 12:00] LABS: ALBUMIN 3.9 g/dL (3.4-5.0); ALBUMIN/GLOBULIN RATIO 1.1 (1.0-1.7); MAGNESIUM 1.6 mg/dL (1.8-2.4); TOTAL BILIRUBIN 0.8 mg/dL (0.2-1.0); TOTAL PROTEIN 7.3 g/dL (6.4-8.2)
--- NOTE | 2018-07-01 12:13 | RAD ---
CT HEAD WO CONTRAST Clinical indications: Confusion started this a.m. Code stroke. COMPARISON: MRI study of the brain dated May 19, 2017. No previous head CT available at this facility. Technique: Noncontrast axial cross sectional scanning of the head was performed. PQRS compliance Statement One or more of the following individualized dose reduction techniques were utilized for this study: 1. Automated exposure control 2. Adjustment of the mA and/or kV according to patient size 3. Use of iterative reconstruction technique Findings: No acute intracranial hemorrhage or midline shift or mass-effect or hydrocephalus or extra-axial fluid collection is seen. No focal hypodense area or sulci effacement is seen to indicate an acute infarct or edema radiographically. No skull fracture or pneumocephalus is seen. No opacification of the mastoid sinuses or the paranasal sinuses is seen. The maxillary sinuses are not completely seen in this study. Impression: No acute intracranial abnormality is seen. Note-this critical result was called to Dr. Arango at 12:08 PM on July 01, 2018. Electronically signed by: Craig Lezama MD (07/01/2018 12:10 PM) [facility]
[2018-07-01] MEDS ORDERED: CONTRAST GIVEN. MC PRN (12:15)
[2018-07-01] MEDS ORDERED: fentaNYL PF VIAL 100 MCG/2 ML VIAL IV ONE ×2 (12:15→20:00)
[2018-07-01] MEDS ORDERED: IOHEXOL 350 MG/ML 100 ML VIAL. IV ONE (12:30)
[2018-07-01] MEDS ORDERED: CETI10TA16 PO (12:35)
[2018-07-01] MEDS ORDERED: DEXT10TA23 PO (12:35)
[2018-07-01] MEDS ORDERED: OMEP20TA63 PO (12:35)
[2018-07-01] MEDS ORDERED: HYDROmorphone 2 MG/ML VIAL IV ONE (13:00)
--- NOTE | 2018-07-01 13:06 | RAD ---
CTA OF THE CHEST AND ABDOMEN AND PELVIS WITH AND WITHOUT CONTRAST Clinical indications: Chest pain and abdominal pain and altered level of consciousness. Hypertension. Possible dissection. Technique: Noncontrast helical CT scanning of the chest and abdomen and pelvis was performed. After IV infusion of 90 cc of Omnipaque 350, helical CT scanning of the chest and abdomen and pelvis was performed using the CTA aortic protocol. Multiplanar MIP reconstructions were generated. Using a MIP algorithm, 3-D reconstructed aortogram was generated. PQRS compliance Statement One or more of the following individualized dose reduction techniques were utilized for this study: 1. Automated exposure control 2. Adjustment of the mA and/or kV according to patient size 3. Use of iterative reconstruction technique Comparison: Chest CT dated March 17, 2017. CHEST CTA: No focal aneurysmal dilatation or dissection or intimal flap of the thoracic aorta is seen. Mild calcified atheromatous disease of the coronary arteries is seen. The heart size is at the upper limits of normal. No pericardial effusion is seen. No enlarged thoracic lymphadenopathy is evident. No pleural effusion or pneumothorax is seen. No lung infiltrate or lung mass is evident. The proximal bronchial tree is patent. Bilateral breast prostheses are seen. No lytic process is seen. IMPRESSION: No thoracic aortic aneurysm or dissection is seen. No acute lung infiltrate. Calcified atheromatous disease of the coronary arteries. ABDOMEN AND PELVIS CTA: No focal aneurysmal dilatation of the abdominal aorta is seen. No intimal flap or dissection is evident. The celiac artery and PATSY and both main renal arteries are unremarkable and are patent. No significant stenosis or occlusive disease of the iliac arteries is seen on either side. No focal aneurysmal dilatation of the common iliac arteries is seen. The liver and spleen and pancreas and gallbladder are normal. No extra hepatic biliary ductal dilatation is seen. No adrenal mass is evident. No hydronephrosis is seen on either side. Small bilateral indeterminate subcentimeter hypodense renal nodules are seen most likely representing cysts. Urinary bladder is not abnormally distended. No enlarged abdominal or pelvic lymphadenopathy is evident. Colonic diverticulosis is seen without diverticulitis. There are no CT findings of appendicitis. No obstructive bowel pattern is evident. No free air or free fluid or mesenteric edema is seen. The uterus is surgically absent. No lytic process is evident. IMPRESSION: No abdominal aortic aneurysm or dissection is seen. No acute abnormality of the abdomen or pelvis is evident. Electronically signed by: Craig Lezama MD (07/01/2018 1:03 PM) [facility]
[2018-07-01] MEDS ORDERED: ONDANSETRON PF 4 MG/2 ML VIAL. ONE (13:07)
[2018-07-01] MEDS ORDERED: ONDANSETRON PF 4 MG/2 ML VIAL. IV ONE (13:15)
--- NOTE | 2018-07-01 13:41 | PHYS DOC ---
Past Medical History Past Medical History: CVA, GERD, High Cholesterol, Hypertension, Stroke, Other Additional Past Medical Histor: ADHD Past Surgical History: Hysterectomy, Knee Replacement, Tonsillectomy, Other Additional Past Surgical Histo: bilateral knee, bilateral rotator cuff, bladder sling, breast implant, back Alcohol Use: Heavy Additional Information: 3 beers per day Drug Use: None Adult General Chief Complaint Chief Complaint: CHEST PAIN HPI HPI Patient is a 67 year old female who brought in by EMS because of chest pain. Patient complaining of sudden onset of nonexertional left-sided chest pain since this morning with radiation to bilateral ear and associated with nausea. Patient complaining of burning feeling in her chest and thinks she has indigestion. Patient rated her pain. The pain improved with 324 mg of aspirin and nitroglycerin 1 given by EMS. Patient cannot remember her medical problem or her age. Patient's friend states she had confusion after her previous CVA. Review of Systems Review of Systems Constitutional: Denies fever or chills [] Eyes: Denies change in visual acuity, redness, or eye pain [] HENT: Denies nasal congestion or sore throat [] Respiratory: Denies cough or shortness of breath [] Cardiovascular: No additional information not addressed in HPI [] GI: Denies abdominal pain, vomiting, bloody stools or diarrhea, reports nausea [] : Denies dysuria or hematuria [] Musculoskeletal: Denies back pain or joint pain [] Integument: Denies rash or skin lesions [] Neurologic: Denies headache, focal weakness or sensory changes [] Endocrine: Denies polyuria or polydipsia [] All other systems were reviewed and found to be within normal limits, except as documented in this note. Current Medications Current Medications Current Medications Medications (Trade) Dose Ordered Sig/Any Start Time Stop Time Status Last Admin Dose Admin Fentanyl Citrate (Fentanyl 2ml Vial) 50 mcg 1X ONCE 07/01/18 12:15 07/01/18 12:16 DC 07/01/18 11:54 50 MCG Hydromorphone HCl (Dilaudid) 1 mg 1X ONCE 07/01/18 13:00 07/01/18 13:01 DC 07/01/18 13:03 1 MG Info (CONTRAST GIVEN -- Rx MONITORING) 1 each PRN DAILY PRN 07/01/18 12:15 5/28/19 12:14 Iohexol (Omnipaque 350 Mg/ml) 90 ml 1X ONCE 07/01/18 12:30 07/01/18 12:31 DC 07/01/18 12:16 90 ML Multi-Ingredient Mouthwash/Gargle (Gi Cocktail) 20 ml 1X ONCE 07/01/18 11:30 07/01/18 11:31 DC 07/01/18 11:37 20 ML Ondansetron HCl (Zofran) 4 mg STK-MED ONCE 07/01/18 13:07 07/01/18 13:08 DC Allergies Allergies Allergies Coded Allergies Type Severity Reaction Last Updated Verified meperidine Adverse Reaction Mild NAUSEA/VOMITING 12/20/16 Yes Physical Exam Physical Exam Constitutional: Well nourished, mild distress, non-toxic appearance. [] HENT: Normocephalic, atraumatic, bilateral external ears normal, oropharynx moist, no oral exudates, nose normal. [] Eyes: PERRLA, EOMI, conjunctiva normal, no discharge. [] Neck: Normal range of motion, no tenderness, supple, no stridor. [] Cardiovascular:Heart rate regular rhythm, no murmur [] Lungs & Thorax: Bilateral breath sounds clear to auscultation [] Abdomen: Bowel sounds normal, soft, no tenderness, no masses, no pulsatile masses. [] Skin: Warm, dry, no erythema, no rash. [] Back: No tenderness, no CVA tenderness. [] Extremities: No tenderness, no cyanosis, no clubbing, ROM intact, no edema. [] Neurologic: Alert and oriented X 2, normal motor function, normal sensory function, no focal deficits noted. NIHSS-3[] Psychologic: Affect anxious, judgement normal, mood normal. [] Current Patient Data Vital Signs Vital Signs Date Time Temp Pulse Resp B/P (MAP) Pulse Ox O2 Delivery O2 Flow Rate FiO2 07/01/18 13:05 74 16 175/99 (124) 99 07/01/18 13:03 Room Air 07/01/18 11:13 97.6 2.0 97.6 Lab Values Laboratory Tests Test 07/01/18 11:25 White Blood Count 7.4 x10^3/uL (4.0-11.0) Red Blood Count 5.00 x10^6/uL (3.50-5.40) Hemoglobin 14.8 g/dL (12.0-15.5) Hematocrit 44.4 % (36.0-47.0) Mean Corpuscular Volume 89 fL (79-100) Mean Corpuscular Hemoglobin 30 pg (25-35) Mean Corpuscular Hemoglobin Concent 34 g/dL (31-37) Red Cell Distribution Width 13.8 % (11.5-14.5) Platelet Count 186 x10^3/uL (140-400) Neutrophils (%) (Auto) 59 % (31-73) Lymphocytes (%) (Auto) 30 % (24-48) Monocytes (%) (Auto) 7 % (0-9) Eosinophils (%) (Auto) 3 % (0-3) Basophils (%) (Auto) 1 % (0-3) Neutrophils # (Auto) 4.4 x10^3uL (1.8-7.7) Lymphocytes # (Auto) 2.3 x10^3/uL (1.0-4.8) Monocytes # (Auto) 0.5 x10^3/uL (0.0-1.1) Eosinophils # (Auto) 0.2 x10^3/uL (0.0-0.7) Basophils # (Auto) 0.1 x10^3/uL (0.0-0.2) Sodium Level 136 mmol/L (136-145) Potassium Level 3.2 mmol/L (3.5-5.1) L Chloride Level 99 mmol/L (98-107) Carbon Dioxide Level 22 mmol/L (21-32) Anion Gap 15 (6-14) H Blood Urea Nitrogen 10 mg/dL (7-20) Creatinine 0.9 mg/dL (0.6-1.0) Estimated GFR (Cockcroft-Gault) 62.6 BUN/Creatinine Ratio 11 (6-20) Glucose Level 129 mg/dL (70-99) H Calcium Level 9.4 mg/dL (8.5-10.1) Magnesium Level 1.6 mg/dL (1.8-2.4) L Total Bilirubin 0.8 mg/dL (0.2-1.0) Aspartate Amino Transferase (AST) 23 U/L (15-37) Alanine Aminotransferase (ALT) 22 U/L (14-59) Alkaline Phosphatase 142 U/L (46-116) H Creatine Kinase 78 U/L (26-192) Troponin I Quantitative 0.128 ng/mL (0.000-0.055) [id number]-R-Type Natriuretic Peptide 262 pg/mL (0-124) H Total Protein 7.3 g/dL (6.4-8.2) Albumin 3.9 g/dL (3.4-5.0) Albumin/Globulin Ratio 1.1 (1.0-1.7) Lipase 136 U/L (73-393) Laboratory Tests 07/01/18 11:25 Laboratory Tests 07/01/18 11:25 EKG EKG EKG interpreted by me. EKG at 1118 showed normal sinus rhythm at rate of 66, nonspecific T-wave abnormalities in inferior and lateral leads, no acute ST and T-wave abnormalities. Unchanged EKG from previous EKG dated 12/07/2016. Radiology/Procedures Radiology/Procedures [facility] [address] [facility] [place] [address] IMAGING REPORT Signed PATIENT: SANIA SOTO ACCOUNT: [id number] : 1950 LOCATION: ER AGE: 67 SEX: F EXAM STATUS: REG ER ORD. PHYSICIAN: KARRIE ISSA MD REASON: chest pain and altered level of consciousness, possible dissection PROCEDURE: CT ANGIO CHEST ABD PELVIS CTA OF THE CHEST AND ABDOMEN AND PELVIS WITH AND WITHOUT CONTRAST Clinical indications: Chest pain and abdominal pain and altered level of consciousness. Hypertension. Possible dissection. Technique: Noncontrast helical CT scanning of the chest and abdomen and pelvis was performed. After IV infusion of 90 cc of Omnipaque 350, helical CT scanning of the chest and abdomen and pelvis was performed using the CTA aortic protocol. Multiplanar MIP reconstructions were generated. Using a MIP algorithm, 3-D reconstructed aortogram was generated. PQRS compliance Statement One or more of the following individualized dose reduction techniques were utilized for this study: 1. Automated exposure control 2. Adjustment of the mA and/or kV according to patient size 3. Use of iterative reconstruction technique Comparison: Chest CT dated March 17, 2017. CHEST CTA: No focal aneurysmal dilatation or dissection or intimal flap of the thoracic aorta is seen. Mild calcified atheromatous disease of the coronary arteries is seen. The heart size is at the upper limits of normal. No pericardial effusion is seen. No enlarged thoracic lymphadenopathy is evident. No pleural effusion or pneumothorax is seen. No lung infiltrate or lung mass is evident. The proximal bronchial tree is patent. Bilateral breast prostheses are seen. No lytic process is seen. IMPRESSION: No thoracic aortic aneurysm or dissection is seen. No acute lung infiltrate. Calcified atheromatous disease of the coronary arteries. ABDOMEN AND PELVIS CTA: No focal aneurysmal dilatation of the abdominal aorta is seen. No intimal flap or dissection is evident. The celiac artery and PATSY and both main renal arteries are unremarkable and are patent. No significant stenosis or occlusive disease of the iliac arteries is seen on either side. No focal aneurysmal dilatation of the common iliac arteries is seen. The liver and spleen and pancreas and gallbladder are normal. No extra hepatic biliary ductal dilatation is seen. No adrenal mass is evident. No hydronephrosis is seen on either side. Small bilateral indeterminate subcentimeter hypodense renal nodules are seen most likely representing cysts. Urinary bladder is not abnormally distended. No enlarged abdominal or pelvic lymphadenopathy is evident. Colonic diverticulosis is seen without diverticulitis. There are no CT findings of appendicitis. No obstructive bowel pattern is evident. No free air or free fluid or mesenteric edema is seen. The uterus is surgically absent. No lytic process is evident. IMPRESSION: No abdominal aortic aneurysm or dissection is seen. No acute abnormality of the abdomen or pelvis is evident. Electronically signed by: Anaya Lezama MD (07/01/2018 1:03 PM) [facility] DICTATED and SIGNED BY: ANAYA LEZAMA MD DATE: 07/01/18 1303 [facility] [address] [place], [place] [id number] IMAGING REPORT Signed PATIENT: SANIA SOTO ACCOUNT: [id number] : 1950 LOCATION: ER AGE: 67 SEX: F EXAM STATUS: REG ER ORD. PHYSICIAN: KARRIE ISSA MD REASON: confusion PROCEDURE: CT HEAD WO CONTRAST CT HEAD WO CONTRAST Clinical indications: Confusion started this a.m. Code stroke. COMPARISON: MRI study of the brain dated May 19, 2017. No previous head CT available at this facility. Technique: Noncontrast axial cross sectional scanning of the head was performed. PQRS compliance Statement One or more of the following individualized dose reduction techniques were utilized for this study: 1. Automated exposure control 2. Adjustment of the mA and/or kV according to patient size 3. Use of iterative reconstruction technique Findings: No acute intracranial hemorrhage or midline shift or mass-effect or hydrocephalus or extra-axial fluid collection is seen. No focal hypodense area or sulci effacement is seen to indicate an acute infarct or edema radiographically. No skull fracture or pneumocephalus is seen. No opacification of the mastoid sinuses or the paranasal sinuses is seen. The maxillary sinuses are not completely seen in this study. Impression: No acute intracranial abnormality is seen. Note-this critical result was called to Dr. Issa at 12:08 PM on July 01, 2018. Electronically signed by: Anaya Lezama MD (07/01/2018 12:10 PM) [facility] DICTATED and SIGNED BY: ANAYA LEZAMA MD DATE: 07/01/18 1210 [facility] [address] [place], [place] [id number] IMAGING REPORT Signed PATIENT: SANIA SOTO ACCOUNT: [id number] : 1950 LOCATION: ER AGE: 67 SEX: F EXAM STATUS: PRE ER ORD. PHYSICIAN: KARRIE ISSA MD REASON: chest pain PROCEDURE: PORTABLE CHEST 1V PORTABLE CHEST 1V Clinical indications: Chest pain COMPARISON: December 07, 2016. Findings: No acute lung infiltrate or pleural effusion or pulmonary edema or lung mass or pneumothorax is seen. The heart size, pulmonary vasculature, mediastinum and both blossom are unremarkable. Impression: No acute radiographic abnormality is seen. Electronically signed by: Anaya Lezama MD (07/01/2018 11:48 AM) [facility] DICTATED and SIGNED BY: ANAYA LEZAMA MD DATE: 07/01/18 3566 Course & Med Decision Making Course & Med Decision Making Pertinent Labs and Imaging studies reviewed. (See chart for details) Evaluation of patient in ER showed 67-year-old female patient with complaining of chest pain. Patient was confused and hadT. Patient treated with aspirin, nitroglycerin by EMS and fentanyl in ER without change of her pain. Patient had chest pain with confusion and CT of chest and abdomen and pelvis was requested with unremarkable findings regarding dissection or aneurysm. Patient had NIHSS of 3 at arrival to ER that decreased to 0. Patient had unremarkable CT of head. Patient treated with Dilaudid and her pain improved. Patient had mild elevation of troponin and Dr. Aguila was consulted at 1305 and recommended to start Lovenox.Patient requiring admission for further evaluation and treatment. Discussed with Dr. Hebert who is in agreement with admission. Discussed findin gs and plan with patient and family, who acknowledge understanding and agreement. Dragon Disclaimer Dragon Disclaimer This electronic medical record was generated, in whole or in part, using a voice recognition dictation system. Departure Departure Impression: Primary Impression: NSTEMI (non-ST elevated myocardial infarction) Additional Impressions: Confusion Hypokalemia Disposition: ADMITTED INPATIENT (admitted at 1443) Admitting Physician: Charlotte Hebert (accepted admission at 1342) Condition: IMPROVED Referrals: CHARLOTTE HEBERT MD (PCP) NIHSS Stroke Scale NIH Stroke Scale: NIH Stroke Scale Response (Comments) Value Level of Consciousness: 0 Alert/Responsive 0 LOC Questions: 2 Answers neither correct 2 LOC Commands: 0 Performs both tasks 0 Best Gaze: 0 Normal 0 Visual: 0 No visual loss 0 Facial Palsy: 0 Normal, symmetrical 0 Motor - Left Arm 0 No drift 0 Motor - Right Arm 0 No drift 0 Motor - Left Leg 0 No drift 0 Motor: Right Leg 0 No drift 0 Limb Ataxia: 0 Absent 0 Sensory: 0 No loss 0 Best Language: 1 Mild to mod aphasia 1 Dysathria: 0 Normal 0 Extinction and Inattention: 0 Normal 0 Total 3 Critical Care Time Critical care time was 100 minutes exclusive of procedures. Problem Qualifiers KARRIE ISSA MD July 01, 2018 13:41
[2018-07-01] MEDS ORDERED: POTASSIUM CHLORIDE 20 MEQ TABLET.ER. PO ONE (13:45)
--- NOTE | 2018-07-01 14:21 | EKG ---
[facility] [address] [place] [address] Test Date: 2018-07-01 Test Time: 11:18:38 Pat Name: SANIA SOTO Department: Room: 261 1 Gender: F Communication Technician: : 1950 Requested By: KARRIE ISSA Order Number: [id number] Reading MD: Anam Aguila MD Measurements Intervals Wanda Rate: 66 P: 51 LA: 140 QRS: 61 QRSD: 88 T: 34 QT: 444 QTc: 467 Interpretive Statements SINUS RHYTHM NON SPECIFIC T ABNORMALITY NON SPECIFIC ST DEPRESSION Electronically Signed On 07-01-2018 18:19:33 CDT by Anam Aguila MD
[2018-07-01] MEDS ORDERED: VITA100075 PO (14:58)
[2018-07-01] MEDS ORDERED: ATOR40TA PO (14:58)
[2018-07-01] MEDS ORDERED: ASPI-630 PO (14:58)
[2018-07-01] MEDS ORDERED: CHOL5000 PO (14:58)
[2018-07-01] MEDS ORDERED: MULT1TAB52 PO (14:58)
[2018-07-01] MEDS ORDERED: UBIQ75CA PO (14:58)
[2018-07-01] MEDS ORDERED: ALBUTEROL SULFATE 2.5 MG/3 ML NEBU. INH PRN (15:30)
[2018-07-01] MEDS ORDERED: oxyCODONE/APAP 10/325 1 TAB TABLET PO PRN (15:30)
[2018-07-01] MEDS ORDERED: HYDROcodone/APAP 10/325 1 TAB TABLET PO PRN (15:30)
[2018-07-01] MEDS ORDERED: METOPROLOL TART IMMED RELEASE 25 MG TABLET. PO SCH (16:00)
[2018-07-01] MEDS: METOPROLOL TART IMMED RELEASE 25 MG TABLET. PO SCH ×2 (18:12→21:25)
[2018-07-01] MEDS ORDERED: IOHEXOL 350 MG/ML 100 ML VIAL. ONE (18:23)
--- NOTE | 2018-07-01 18:31 | NUR ---
Approximately 1745 entered patients room to round. Patient stated she felt her chest pain returning and wanted to check her B/P. Patients blood pressure is 154/85. Checked to see if troponin was resulted and found increased troponin of 8.824. Pgd and spoke to rivet bucker who ordered a STAT EKG and arrived at bedside to assess patient. Patients and son is at beside at the time. Educated patient on heart catherterization.
--- NOTE | 2018-07-01 18:41 | EKG ---
[facility] [address] [place] [address] Test Date: 2018-07-01 Test Time: 18:38:38 Pat Name: SANIA SOTO Department: Room: 261 1 Gender: F Certified Welding Inspector: : 1950 Requested By: ARIC DWYER Order Number: [id number] Reading MD: Aric Dwyer MD Measurements Intervals [place] Rate: 76 P: 59 MT: 150 QRS: 74 QRSD: 84 T: -114 QT: 400 QTc: 455 Interpretive Statements SINUS RHYTHM INFEROLATERAL ISCHEMIA Electronically Signed On 07-01-2018 19:03:50 CDT by Aric Dwyer MD
[2018-07-01] MEDS ORDERED: IODIXANOL 320 MG/ML 100 ML VIAL. ONE (19:02)
[2018-07-01] MEDS ORDERED: LIDOCAINE 1% PF 2 ML VIAL. ONE (19:02)
[2018-07-01] MEDS ORDERED: HEPARIN for ARTERIAL LINE 1,500 ML ONE (19:03)
--- NOTE | 2018-07-01 19:11 | PDOC2 ---
CARDIOLOGY CONSULT NOTE CHEIF COMPLAINT: Chest pain HPI: Pleasant 67-year-old woman coming into the ER with chest pain. She started having some chest discomfort early this morning and this continued to just rate throughout the day with various activities and this ultimately prompted her to arrival to the ER. Initially in the ER she probably was noted to be confused but upon talking with the patient she just felt overwhelmed and was unable to communicate her symptoms to the ER staff. Nonetheless, she had an extensive evaluation including an EKG, CT angios of the chest and this did not reveal any abnormalities but she did have an elevated troponin. Therefore she was given anticoagulation with Lovenox and admitted for further evaluation and treatment. Upon arrival to the floor she reported 5 out of 10 chest pain with continued GI symptoms such as heartburn and belching. Her repeat EKG now suggested inferolateral ischemia and her troponin was elevated to 8.8 and therefore she was emergently recommended to undergo cardiac catheterization. PMHX: 1. Prior CVA/TIA with mild memory deficits 2. Dyslipidemia 3. GERD SOCHX: She picked up smoking approximate 7 years ago when her . She has 2 children. Denies any significant alcohol use or any illicit drug use. FAMHX: Noncontributory CURRENT MEDS: Current Medications Medications (Trade) Dose Ordered Sig/Any Start Time Stop Time Status Last Admin Dose Admin Acetaminophen/ Hydrocodone Bitart (Lortab 10/325) 1 tab PRN Q4HRS PRN 07/01/18 15:30 07/01/18 18:28 1 TAB Albuterol Sulfate (Ventolin Neb Soln) 8.5 mg PRN Q4HRS PRN 07/01/18 15:30 Aspirin (Children'S Aspirin) 81 mg DAILY 07/02/18 09:00 Atorvastatin Calcium (Lipitor) 40 mg HS 07/01/18 21:00 Cetirizine HCl (ZyrTEC) 10 mg DAILY 07/02/18 09:00 Enoxaparin Sodium (Lovenox 60mg Syringe) 60 mg 1X ONCE 07/01/18 13:30 07/01/18 13:31 DC 07/01/18 13:56 60 MG Fentanyl Citrate (Fentanyl 2ml Vial) 50 mcg 1X ONCE 07/01/18 12:15 07/01/18 12:16 DC 07/01/18 11:54 50 MCG Heparin Sodium/ Sodium Chloride 1,500 ml @ As Directed STK-MED ONCE 07/01/18 19:03 07/01/18 19:04 DC Hydromorphone HCl (Dilaudid) 1 mg 1X ONCE 07/01/18 13:00 07/01/18 13:01 DC 07/01/18 13:03 1 MG Info (CONTRAST GIVEN -- Rx MONITORING) 1 each PRN DAILY PRN 07/01/18 12:15 07/03/18 12:14 Iodixanol (Visipaque 320) 100 ml STK-MED ONCE 07/01/18 19:02 07/01/18 19:03 DC Iohexol (Omnipaque 350 Mg/ml) 100 ml STK-MED ONCE 07/01/18 18:23 07/01/18 18:24 DC Lidocaine HCl (Xylocaine-Mpf 1% 2ml Vial) 2 ml STK-MED ONCE 07/01/18 19:02 07/01/18 19:03 DC Metoprolol Tartrate (Lopressor) 25 mg BID 07/01/18 16:00 07/01/18 18:12 25 MG Multi-Ingredient Mouthwash/Gargle (Gi Cocktail) 20 ml 1X ONCE 07/01/18 11:30 07/01/18 11:31 DC 07/01/18 11:37 20 ML Multivitamins (Thera M Plus) 1 tab DAILY 07/02/18 09:00 Non-Formulary Medication (Dextroamphetamine/ Amphetamine (Adderall 10 Mg Tablet)) 10 mg BID 07/01/18 21:00 UNV Ondansetron HCl (Zofran) 4 mg STK-MED ONCE 07/01/18 13:07 07/01/18 13:08 DC Oxycodone/ Acetaminophen (Percocet 10/325) 1 tab PRN Q4HRS PRN 07/01/18 15:30 Pantoprazole Sodium (Protonix) 40 mg DAILYAC 07/02/18 07:30 Potassium Chloride (Klor-Con) 40 meq 1X ONCE 07/01/18 13:45 07/01/18 13:46 DC 07/01/18 13:55 40 MEQ Vitamin D (Vitamin D3) 5,000 unit DAILY 07/02/18 09:00 Vitamin E 1,000 unit DAILY 07/02/18 09:00 ALLERGIES: Allergies Coded Allergies Type Severity Reaction Last Updated Verified apixaban Allergy Intermediate hives 07/01/18 Yes clopidogrel Allergy Intermediate hives 07/01/18 Yes meperidine Adverse Reaction Mild NAUSEA/VOMITING 12/20/16 Yes ROS: Negative for 10 out of 14 systems reviewed unless otherwise mentioned above in history of present illness PHYSICAL EXAM: Vital Signs: Vital Signs Date Time Temp Pulse Resp B/P (MAP) Pulse Ox O2 Delivery O2 Flow Rate FiO2 07/01/18 18:28 Room Air 07/01/18 18:12 154/85 07/01/18 16:30 98 07/01/18 14:05 68 16 07/01/18 14:00 97.5 97.5 07/01/18 11:13 2.0 Physical Exam: GEN.: No apparent distress. Alert and oriented. HEENT: Head is normocephalic, atraumatic NECK: Supple. LUNGS: Clear to auscultation. HEART: RRR, S1, S2 present. Peripheral pulses intact ABDOMEN: Soft, nontender. Positive bowel sounds. EXTREMITIES: Without any cyanosis. NEUROLOGIC: Normal speech, normal tone PSYCHIATRIC: Normal affect, normal mood. SKIN: No ulcerations DIAGNOSTIC TESTING: Troponin elevated to 8.8 Repeat EKG demonstrates inferolateral ischemia Creatinine, hemoglobin, platelets within normal limits. ASSESSMENT: 1. High risk non-ST elevation myocardial infarction 2. Dyslipidemia 3. Prior CVA/TIA PLAN: 1. An extensive discussion was held with the patient given her presenting symptoms and continued chest pain despite intravenous narcotics. We discussed the risks, benefits and alternatives to emergent cardiac catheterization and she wishes to proceed. Further recs based on cardiac catheterization. Thank you for this consultation. ARIC DWYER MD July 01, 2018 19:11
[2018-07-01] MEDS ORDERED: HEPARIN for IV BOLUS 10,000 UNIT/10 ML VIAL. ONE (19:14)
[2018-07-01] MEDS ORDERED: fentaNYL PF VIAL 100 MCG/2 ML VIAL ONE (19:14)
[2018-07-01] MEDS ORDERED: MIDAZOLAM HCL/PF 2 MG/2 ML VIAL. ONE (19:14)
[2018-07-01] MEDS ORDERED: NITROGLYCERIN 200 MCG/2 ML SYRINGE FOR CATH/VASC LAB. ONE ×3 (19:14→19:48)
[2018-07-01] MEDS ORDERED: VERAPAMIL 5 MG/2 ML VIAL. ONE (19:14)
[2018-07-01] MEDS ORDERED: HEPARIN 25,000UTS/500ML PREMIX 500 ML IV ONE (19:44)
[2018-07-01] MEDS ORDERED: TIROFIBAN 5MG -0.9% NS 100 ML IV ONE (19:48)
[2018-07-01] MEDS ORDERED: NITROGLYCERIN 200 MCG/2 ML SYRINGE FOR CATH/VASC LAB. ICAR ONE (20:00)
[2018-07-01] MEDS ORDERED: VERAPAMIL 5 MG/2 ML VIAL. IART ONE (20:00)
[2018-07-01] MEDS ORDERED: MIDAZOLAM HCL/PF 2 MG/2 ML VIAL. IV ONE (20:00)
[2018-07-01] MEDS ORDERED: HEPARIN for IV BOLUS 10,000 UNIT/10 ML VIAL. IV PRN (20:00)
[2018-07-01] MEDS ORDERED: HEPARIN for IV BOLUS 10,000 UNIT/10 ML VIAL. IART ONE (20:00)
[2018-07-01] MEDS ORDERED: HEPARIN 25,000UTS/500ML PREMIX 500 ML IV PRN (20:00)
[2018-07-01] MEDS ORDERED: IODIXANOL 320 MG/ML 100 ML VIAL. IART ONE (20:00)
[2018-07-01] MEDS ORDERED: NITROGLYCERIN 200 MCG/2 ML SYRINGE FOR CATH/VASC LAB. IART ONE (20:00)
[2018-07-01] MEDS ORDERED: TIROFIBAN 5MG -0.9% NS 100 ML IV PRN ×2 (20:00→21:00)
[2018-07-01] MEDS ORDERED: LIDOCAINE 1% PF 2 ML VIAL. INJ ONE (20:00)
[2018-07-01] MEDS ORDERED: HEPARIN for IV BOLUS 10,000 UNIT/10 ML VIAL. IV ONE (20:00)
[2018-07-01] MEDS ORDERED: TICAGRELOR 90 MG TABLET. ONE (20:17)
[2018-07-01] MEDS ORDERED: TICAGRELOR 90 MG TABLET. PO ONE (20:30)
[2018-07-01] MEDS ORDERED: NON FORMULARY ITEM (Dextroamphetamine/Amphetamine (Adderall 10 Mg Tablet) 10 MG) PO SCH (21:00)
[2018-07-01] MEDS ORDERED: ATORVASTATIN CALCIUM 40 MG TABLET. PO SCH (21:00)
--- NOTE | 2018-07-02 00:51 | NUR ---
Pt has small amount of oozing coming from radial cath site. Manual pressure held V-pad applied. Will continue to monitor.
[2018-07-02 03:30] VITALS: BP 118/75
[2018-07-02 03:30] LABS: HEMATOCRIT 41.2 % (36.0-47.0); HEMOGLOBIN 13.3 g/dL (12.0-15.5); RED BLOOD COUNT 4.58 x10^6/uL (3.50-5.40); WHITE BLOOD COUNT 10.4 x10^3/uL (4.0-11.0)
--- NOTE | 2018-07-02 05:28 | NUR ---
Call to Dr Millan regarding patients oozing. no hematoma area is soft. Orders received to stop heparin gtt. will continue to monitor.
[2018-07-02 07:04] VITALS: BP 114/72
[2018-07-02] MEDS ORDERED: PANTOPRAZOLE 40 MG TABLET.DR. PO SCH (07:30)
--- NOTE | 2018-07-02 08:15 | PDOC ---
Provider Note Provider Note [id number] CHARLOTTE CARLSON MD July 02, 2018 08:15
--- NOTE | 2018-07-02 08:31 | HP ---
ADMIT DATE: 07/01/2018 CHIEF COMPLAINT: Chest pain. HISTORY OF PRESENT ILLNESS: A 67-year-old white female with no prior history of coronary disease, was showering, getting ready for quaker and she developed fairly significant chest pain and pressure associated with significant diaphoresis and radiation of pain to her neck and jaw. She had had a milder episode about one month prior to admission at rest and this resolved without symptoms or exertional symptoms since that time. Initial ER evaluation was unremarkable with normal troponin x 1, but the second troponin was over [address] Aguila took her to the Neurology Tech. He found a distal circumflex lesion and no other lesions and she has been on IV Aggrastat and oral meds since that time with improvement in her pain. PAST MEDICAL HISTORY: Prior history of TIA and she takes aspirin for that. She has been on the atorvastatin for several months with the latest LDL being 83. MEDICATIONS: Other meds listed per the chart. ALLERGIES: She was intolerant to PLAVIX in the past. SOCIAL HISTORY: Recently started smoking again about half pack a day. She drinks modest amount of alcohol. She is and physically active. FAMILY HISTORY: Unremarkable. REVIEW OF SYSTEMS: No other complaints. OBJECTIVE: ENT: All within normal limits. NECK: No masses, nodes or bruits. LUNGS: Clear. CARDIOVASCULAR: Regular rate. No irregular beat, murmur or tachycardia. ABDOMEN: Soft, benign and nontender. EXTREMITIES: Excellent pedal and radial pulses. No clubbing, no cyanosis or edema. NEUROLOGIC: Physiologic and nonfocal. ASSESSMENT: Acute non-ST elevated myocardial infarction secondary to a distal circumflex lesion. She was already on aspirin and statin and it is likely that resuming cigarette smoking was the main cause of this event. PLAN: Continue meds with the addition of the beta tae. Likely, we will be able to be discharge later today or perhaps tomorrow and complete tobacco avoidance was discussed. CHARLOTTE CARLSON MD DR: MARCO/yvan JOB#: [id number] / [id number]
[2018-07-02] MEDS ORDERED: CETIRIZINE HCL 10 MG TABLET. PO SCH (09:00)
[2018-07-02] MEDS ORDERED: VITAMIN E 200 UNIT CAPSULE. PO SCH (09:00)
[2018-07-02] MEDS ORDERED: MULTIVITAMIN with MINERAL TABLET. PO SCH (09:00)
[2018-07-02] MEDS ORDERED: DOCUSATE SODIUM 100 MG CAPSULE. PO SCH (09:00)
[2018-07-02] MEDS ORDERED: CHOLECALCIFEROL (VITAMIN D3) 5,000 UNIT CAPSULE PO SCH (09:00)
[2018-07-02] MEDS ORDERED: ASPIRIN CHEWABLE 81 MG TABLET. PO SCH (09:00)
[2018-07-02] MEDS: METOPROLOL TART IMMED RELEASE 25 MG TABLET. PO SCH (09:24)
--- NOTE | 2018-07-02 10:28 | EKG ---
[facility] [address] [place] [address] Test Date: 2018-07-02 Test Time: 10:24:40 Pat Name: SANIA SOTO Department: Room: 261 1 Gender: F National Sales Manager: RISHI : 1950 Requested By: ARIC DWYER Order Number: [id number] Reading MD: Measurements Intervals [place] Rate: 62 P: 44 DE: 136 QRS: 69 QRSD: 84 T: -154 QT: 466 QTc: 476 Interpretive Statements SINUS RHYTHM T ABNORMALITY IN ANTEROLATERAL LEADS INFEROLATERAL LEADS PROLONGED QT ABNORMAL ECG RI6.01 Compared to ECG 07/01/2018 18:38:38 T-wave abnormality now present Prolonged QT interval now present Possible ischemia no longer present
[2018-07-02] MEDS ORDERED: TICAGRELOR 90 MG TABLET. PO SCH (10:30)
[2018-07-02 10:41] VITALS: BP 138/86
[2018-07-02] MEDS ORDERED: ACETAMINOPHEN 325 MG TABLET. PO PRN (10:45)
--- NOTE | 2018-07-02 14:30 | PDOC ---
CARDIOLOGY PROGRESS NOTE SUBJECTIVE: Feels great. Has no chest pain. walking around the floors w/o problems. OBJECTIVE: Vital SIgns: Vital Signs Date Time Temp Pulse Resp B/P (MAP) Pulse Ox O2 Delivery O2 Flow Rate FiO2 07/02/18 10:41 97.6 63 18 138/86 (103) 97 Room Air 97.6 07/01/18 11:13 2.0 I & O Intake and Output 07/02/18 06:59 Intake Total 400 ml Output Total 2200 ml Balance -1800 ml Intake Oral 400 ml Output Urine Total 2200 ml Objective: GEN.: No apparent distress. Alert and oriented. HEENT: Head is normocephalic, atraumatic NECK: Supple. LUNGS: Clear to auscultation. HEART: RRR, S1, S2 present. Peripheral pulses intact ABDOMEN: Soft, nontender. Positive bowel sounds. EXTREMITIES: Without any cyanosis. Right radial site is c/d/i NEUROLOGIC: Normal speech, normal tone PSYCHIATRIC: Normal affect, normal mood. SKIN: No ulcerations CURRENT MEDICATIONS: Metoprolol 25mg bid Atorvastatin 40mg daily ASA 81mg daily Ticagrelor 90mg bid. DIAGNOSTIC TESTING: Trop peak 19 thus far. CBC stable. cr pending ASSESSMENT: 1. NSTEMI - likely spontaneous coronary artery dissection. 2. HTN 3. Prior CVA 4. Tobacco abuse. PLAN: 1. Ok to DC today if cleared by primary. 2. f/u in the office in 2 months. 3. will obtain echo prior to DC if able, otherwise, plan for outpt echo in 1-2 days. Thanks. ARIC DWYER MD July 02, 2018 14:30
[2018-07-02 14:41] VITALS: BP 117/60
[2018-07-02 15:26] LABS: CALCIUM 9.5 mg/dL (8.5-10.1); GFR 55.5; POTASSIUM 4.3 mmol/L (3.5-5.1)
[2018-07-02] MEDS ORDERED: TICA90TA PO (15:47)
[2018-07-02] MEDS ORDERED: METO25TA4 PO (15:49)
--- NOTE | 2018-07-02 16:35 | NUR ---
DISCHARGE INSTRUCTIONS GIVEN, QUESTIONS AND CONCERNS ANSWERED, PATIENT VERBALIZED UNDERSTANDING OF DISCHARGE INFORMATION INCLUDING TAKING ALL MEDICATIONS INSTRUCTED AND FOLLOWING UP WITH HER PRIMARY PROVIDER AND DR. DWYER INSTRUCTED. SALINE LOCKS REMOVED FROM PATIENTS' LEFT AC AND LEFT FOREARM, BANDAGE APPLIED. ALL PERSONAL BELONGINGS GATHERED BY THE PATIENT AND PLACED IN BAGS FOR DISCHARGE. STATUS POST HEART CATH INSTRUCTIONS GIVEN TO PATIENT BY CHARGE NURSE (UNA MAY RN) TO INCLUDE NO HEAVY LIFTING FOR TEN DAYS, IF BLEEDING NOTICED FROM YOUR INCISION THAT DOES NOT STOP AFTER 30 MINS OF PRESSURE OR IF YOU HAVE CHEST PAIN OR TROUBLE BREATHING SEEK MEDICAL CARE IMMEDIATELY THROUGH THE EMERGENCY ROOM, BUT DO NOT DRIVE, CALL FOR AN AMBULANCE. PRESCRIPTION GIVEN TO PATIENT FOR BRILLINTA AND METOPROLOL.
--- NOTE | 2018-07-02 17:03 | NUR ---
PATIENT AMBULATES OFF THE UNIT ALONGSIDE GLOBAL CHIEF EXPERIENCE OFFICER AND FAMILY MEMBERS, EMOTIONAL SUPPORT GIVEN.
--- NOTE | 2018-07-03 08:34 | PDOC ---
Provider Note Provider Note [id number] CHARLOTTE CARLSON MD July 03, 2018 08:34
--- NOTE | 2018-07-03 10:57 | CARD ---
MR#: [id number] Date of Study: 07/01/2018 Ordering Physician: ARIC DWYER, Referring Physician: CHARLOTTE CARLSON Tech: RT Jonny (R) GALLO APPROVED REPORT Technologist: RT Jonny (R) GALLO Nurse: Indira Yap R.N. Procedure(s) performed: fluoro time:2.2 min DAP:73 Gycm2 contrast: 57 ml mod sed: 48 min LHC, Coronary angiography HISTORY The patient is a 67 year-old female with a history of : tobacco history() , hypertension. INDICATION The indication(s) include : non-STEMI . [facility] Clinical Frailty Scale [facility] Clinical Frailty Scale: Managing Well Heart Failure Heart Failure: Yes If Yes, Newly Diagnosed: Yes If Yes, HF Type: Diastolic If Yes, NYHA Class: Class II PROCEDURE NARRATIVE INFORMED CONSENT: After explaining the risks and benefits of the procedure and alternatives, informed consent was obtained. The patient was brought electively to the cardiac catheterization lab. A timeout was performed confi rming the patient's name, date of , procedure, and site of procedure. All necessary personnel w ere wearing the appropriate protective equipment and radiation monitor devices. (See nursing notes for medications administered). ACCESS: The right wrist was sterilely prepped and draped in the usual fashion. The right wrist was infiltrat ed with 1 mL of 2% lidocaine for subcutaneous anesthesia. A 6 German Terumo glide sheath was inserte d into the right radial artery without difficulty. CORONARY ANGIOGRAPHY: Right and left coronary angiography was performed using a 6Fr TIG 4.0 catheter. Left ventricular en d diastolic pressure was obtained with a TIG catheter and pullback was performed. All catheter excha nges and advancements were performed over a guidewire. CLOSURE: At case completion the right radial sheath was removed and a Terumo radial band was applied with 13 m l of air. COMPLICATIONS: The patient tolerated the procedure well and there were no immediate complications. FINDINGS: HEMODYNAMICS: LVEDP 22 mm Hg No gradient on LV to aortic pullback. AO: 128/78 LEFT VENTRICULOGRAM: Deferred due to contrast load from CTA prior to cath. CORONARY ANGIOGRAPHY: LM is a large caliber vessel with normal angiographic appearance. LAD is a moderate caliber vessel that tapers to a small size distally and has normal angiographic elliott earance. D1 is a small to moderate caliber vessel with normal angiographic apeparance. LCx is a moderate caliber non-dominant vessel with normal angiographic appearance. OM1 is a moderate caliber vessel with a distal 99% subtotal occlusion, suggestive of SCAD or embolic disease rather than acute plaque rupture. RCA is a large caliber dominant vessel with mild luminal irregularities. RPDA and RPL are moderate caliber vessels with normal angiographic appearance.The PDA is the dominant vessel to the apex. Due to lack of ST elevations and apical/lateral small caliber nature of the vessel (less than 2 mm), further intervention was deferred in favor of aggressive medical therapy. Conclusion 1. Elevated left sided filling pressures suggestive of acute diastolic heart failure 2. One vessel CAD in a small apical/lateral obtuse marginal, not easily amenable to PCI Recommendations Aggressive medical management. Signed by : Aric Dwyer, Electronically Approved : 07/02/2018 09:40:59
--- NOTE | 2018-07-03 12:54 | DS ---
DATE OF DISCHARGE: HOSPITAL SUMMARY: A 67-year-old white female with no prior coronary artery history, came in with chest pain and diaphoresis, suspicious for acute WI. CBC and chemistry profile were unremarkable. Initial troponin was normal, but second troponin was 8.8. , it peaked to 19.7. Chest x-ray was clear. CT head and a CTA of chest, abdomen and pelvis were all normal as well. Because of continued chest pain and elevation of troponin, Dr. Aguila took her to the agriculture laboratory technician, where he found the distal circumflex stenosis that was too small to intervene upon. She was given heparin and Aggrastat and subsequently has done well and after about 12 hours, she was comfortable to be discharged and followed as an outpatient. FINAL DIAGNOSES: 1. Acute myocardial infarction, non-ST elevated. 2. Tobacco use. OPERATIONS AND PROCEDURES: Cardiac catheterization. COMPLICATIONS: None. CONSULTATIONS: Dr. Aguila. DISPOSITION: She is already on aspirin and atorvastatin. We will add metoprolol 25 mg twice a day and ticagrelor 90 mg twice a day and multivitamins daily. ACTIVITY: As tolerated. Complete tobacco avoidance was strongly encouraged as the only obvious source for her coronary artery disease. Office followup in 1-2 weeks. PROGNOSIS: Good. CHARLOTTE CARLSON MD DR: MARCO/nts JOB#: [id number] / [id number]
== END 2018-07-02 17:04 | disposition home or self-care (01) | DRG 280 ==
LOC: ER 11:13 → 2 SOUTH 13:14
PROVIDERS: ADMIT Family Medicine; ATTEND Family Medicine
PROC: 4A023N7 Measurement of Cardiac Sampling and Pressure, Left Heart, Percutaneous Approach (ICD-10-PCS; principal; 2018-07-01)
PROC: B2111ZZ Fluoroscopy of Multiple Coronary Arteries using Low Osmolar Contrast (ICD-10-PCS; 2018-07-01)
DX: I21.4 Non-ST elevation (NSTEMI) myocardial infarction (principal); I50.31 Acute diastolic (congestive) heart failure; E78.00 Pure hypercholesterolemia, unspecified; E78.5 Hyperlipidemia, unspecified; E87.6 Hypokalemia; I25.10 Atherosclerotic heart disease of native coronary artery without angina pectoris; K21.9 Gastro-esophageal reflux disease without esophagitis; F90.9 Attention-deficit hyperactivity disorder, unspecified type; K57.30 Diverticulosis of large intestine without perforation or abscess without bleeding; F17.210 Nicotine dependence, cigarettes, uncomplicated; Z96.659 Presence of unspecified artificial knee joint; Z79.82 Long term (current) use of aspirin; Z86.73 Personal history of transient ischemic attack (TIA), and cerebral infarction without residual deficits; Z98.82 Breast implant status; Z90.710 Acquired absence of both cervix and uterus; Z79.899 Other long term (current) drug therapy; Z88.8 Allergy status to other drugs, medicaments and biological substances; Z90.49 Acquired absence of other specified parts of digestive tract; Z71.6 Tobacco abuse counseling; I11.0 Hypertensive heart disease with heart failure
CPT/HCPCS: 36415; 70450; 71045; 71275; 74174; 80048; 80053; 82550; 83690; 83735; 83880; 84484; 85025; 85027; 85520; 93005; 93458; 96372; 96374; 96375; 99152; 99153; 99292; C1769; C1892; J1170; J1644; J1650; J2250; J2405; J3010; J3490; Q9967; 99291-25; J3246

== ENCOUNTER → 2018-11-15 | Outpatient (CLI) | payer MEDICARE, OTHER ==
[~2018-11-15] VITALS: Ht 157.5 cm; Wt 67.1 kg
[~2018-11-15] MED LIST changes: +ASPI-630 PO; +ATOR40TA PO; +CETI10TA16 PO; +CHOL5000 PO; +DEXT10TA23 PO; +METO25TA4 PO; +MORPHINE SULFATE 4 MG/ML VIAL. IV ONE; +MORPHINE SULFATE 4 MG/ML VIAL. ONE; +MULT1TAB52 PO; +OMEP20TA63 PO; +TICA90TA PO; +UBIQ75CA PO; +VITA100075 PO
--- NOTE | 2018-11-15 11:07 | RAD ---
EXAM: HEPATOBILIARY SCINTIGRAPHY WITH GALLBLADDER EJECTION FRACTION CALCULATION. HISTORY: Abdominal pain/nausea. TECHNIQUE: 5.5 mCi technetium-99m Choletec were administered intravenously and scintigraphic images of the abdomen obtained. FINDINGS: There is prompt hepatic clearance of tracer from the blood pool. There is homogeneous distribution throughout the liver. There is normal excretion into the biliary tree and small bowel. The gallbladder does not fill within 60 minutes. 4 mg morphine were administered intravenously and the gallbladder filled. IMPRESSION: 1. Gallbladder filled after morphine administration, arguing against cholecystitis. Electronically signed by: Karoline Gibson MD (11/15/2018 11:05 AM) [facility]
== END | disposition home or self-care (01) ==
LOC: NM 07:48
PROVIDERS: ATTEND Internal Medicine Gastroenterology
DX: R10.13 Epigastric pain (principal)
CPT/HCPCS: 78227; A9537; J2270

== ENCOUNTER → 2018-12-07 | Day surgery (SDC) | payer MEDICARE, OTHER ==
[~2018-12-07] MED LIST changes: +IV RINGERS,LACTATED 1000ML 1,000 ML IV SCH; +LIDOCAINE 2% PF 5 ML VIAL. ONE; -MORPHINE SULFATE 4 MG/ML VIAL. IV ONE; -MORPHINE SULFATE 4 MG/ML VIAL. ONE; +PROPOFOL 20 ML IV ONE
[2018-12-07 09:50] VITALS: BP 121/71
--- NOTE | 2018-12-07 23:24 | CONS ---
DATE OF CONSULTATION: 12/07/2018 REFERRING PHYSICIAN: Dr. Charlotte Hebert. HISTORY OF PRESENT ILLNESS: A 68-year-old female with past medical history significant for hyperlipidemia, gastroesophageal reflux disease, is seen for ongoing abdominal pain with bloating, belching and nausea. Prior ultrasound was normal. Gallbladder HIDA scan did reveal delayed filling of the gallbladder requiring morphine administration. Upper endoscopy today is to rule out gastroparesis, retained food ulcers, and her celiac disease prior to possible laparoscopic cholecystectomy. She is still having problems with pain, nausea and vomiting. She is otherwise without additional complaints. PAST MEDICAL HISTORY: Hypertension, colonic diverticulosis, CVA, GERD, blood clots. ALLERGIES: PLAVIX, MEPERIDINE, AND ELIQUIS. MEDICATIONS: Include aspirin, atorvastatin, cetirizine, vitamin D, Adderall, metoprolol, multivitamins, omeprazole, Brilinta. SOCIAL HISTORY: She is a nonsmoker, social drinker. FAMILY HISTORY: Noncontributory. PAST SURGICAL HISTORY: Knee replacement, hysterectomy, back surgery, breast surgery, joint replacement, and tonsillectomy. PHYSICAL EXAMINATION: GENERAL: Reveals a well-nourished, well-developed female, alert, cooperative, in no acute distress. VITAL SIGNS: Temperature 97, pulse 58, respiratory rate 18. HEENT: Normocephalic, atraumatic head. Pupils and extraocular muscles are not tested. Sclerae are anicteric. NECK: Supple. LUNGS: Clear. CARDIOVASCULAR: Reveals an S1, S2 without S3, S4 or appreciable murmur. ABDOMEN: Reveals a soft abdomen, normal bowel sounds, without appreciable hepatosplenomegaly. EXTREMITIES: Reveals no cyanosis, clubbing, or edema. IMPRESSION: Epigastric abdominal pain with bloating, nausea. Borderline HIDA scan recommend, upper endoscopy to rule out additional pathology prior to potential surgical consultation for laparoscopic cholecystectomy. DAVID ORNELAS MD DR: REICA/yvan JOB#: [id number] / [id number] CHARLOTTE Simmons MD
== END | disposition home or self-care (01) ==
LOC: ENDOS 08:06
PROVIDERS: ATTEND Internal Medicine Gastroenterology
DX: K29.50 Unspecified chronic gastritis without bleeding (principal); K21.9 Gastro-esophageal reflux disease without esophagitis; E78.5 Hyperlipidemia, unspecified; I10 Essential (primary) hypertension; K57.30 Diverticulosis of large intestine without perforation or abscess without bleeding; Z86.73 Personal history of transient ischemic attack (TIA), and cerebral infarction without residual deficits; Z88.8 Allergy status to other drugs, medicaments and biological substances; Z79.82 Long term (current) use of aspirin; Z79.899 Other long term (current) drug therapy; Z96.659 Presence of unspecified artificial knee joint; Z90.710 Acquired absence of both cervix and uterus; Z72.89 Other problems related to lifestyle
CPT/HCPCS: 43235; J2001; J2704

== ENCOUNTER → 2018-12-26 | Outpatient (CLI) | payer MEDICARE, OTHER ==
[2018-12-07 09:50] VITALS: BP 121/71
[~2018-12-26] MED LIST changes: -IV RINGERS,LACTATED 1000ML 1,000 ML IV SCH; -LIDOCAINE 2% PF 5 ML VIAL. ONE; -PROPOFOL 20 ML IV ONE
--- NOTE | 2018-12-26 10:41 | CARD ---
MR#: [id number] Date of Study: 12/26/2018 Ordering Physician: ARIC DWYER, Referring Physician: ARIC DWYER, Tech: Frances King APPROVED REPORT EXAM: Two-dimensional and M-mode echocardiogram with Doppler and color Doppler. Other Information Quality : AverageHR: 59bpm INDICATION CAD 2D DIMENSIONS Left Atrium(2D)3.6 (1.6-4.0cm)Aortic Root(2D)2.6 (2.0-3.7cm) LVOT Diameter1.8 (1.8-2.4cm) Aortic Valve AoV Peak Marcos.99.7cm/sAoV VTI20.2cm AO Peak GR.4.0mmHgLVOT Peak Marcos.59.0cm/s LVOT VTI 12.34cmAO Mean GR.3mmHg ALEXANDRA (VMAX)1.53gp6BRH (VTI)1.54cm2 Mitral Valve MV E Oxxtpmyy72.3cm/sMV DECEL JOHG159lv MV A Mgpfzusp46.2cm/sMV TKN33gf E/A Ratio0.9MVA (PHT)3.07cm2 TDI E/Lateral E'17.0E/Medial E'14.6 Pulmonary Valve PV Peak Uyioyvjh62.6cm/sPV Peak Grad.2mmHg Tricuspid Valve TR P. Slajstxy535dc/sRAP UEKDVTPO3ebWe TR Peak Gr.86ntUdVKPC15smDq Pulmonary Vein S1 Kkyhcmmd65.4cm/sD2 Fkuseyyr18.4cm/s PVa svsldgna118tjds LEFT VENTRICLE The left ventricle is normal size. There is normal left ventricular wall thickness. The left ventricu lar systolic function is normal. The Ejection Fraction is 55-60%. There is normal LV segmental wall m otion. Transmitral Doppler flow pattern is Grade I-abnormal relaxation pattern. RIGHT VENTRICLE The right ventricle is normal size. ATRIA The left atrium size is normal. The right atrium size is normal. The interatrial septum is intact wit h no evidence for an atrial septal defect or patent foramen ovale as noted on 2-D or Doppler imaging. AORTIC VALVE The aortic valve is normal in structure and function. Doppler and Color Flow revealed no significant aortic regurgitation. There is no significant aortic valvular stenosis. MITRAL VALVE The mitral valve is normal in structure and function. There is no evidence of mitral valve prolapse. There is no mitral valve stenosis. Doppler and Color-flow revealed mild mitral regurgitation. TRICUSPID VALVE The tricuspid valve is normal in structure and function. Doppler and Color Flow revealed mild tricusp id regurgitation with an estimated PAP of 21 mmHg. PULMONIC VALVE The pulmonic valve is not well visualized. Doppler and Color Flow revealed no pulmonic valvular regur gitation. GREAT VESSELS The aortic root is normal in size. The ascending aorta is normal in size. The IVC is normal in size a nd collapses >50% with inspiration. PERICARDIAL EFFUSION There is no pleural effusion. There is no evidence of significant pericardial effusion. Critical Notification Critical Value: No <Conclusion> The left ventricular systolic function is normal. The Ejection Fraction is 55-60%. There is normal LV segmental wall motion. Transmitral Doppler flow pattern is Grade I-abnormal relaxation pattern. Mild mitral regurgitation. Mild tricuspid regurgitation with an estimated PAP of 21 mmHg. There is no evidence of significant pericardial effusion. Signed by : Rashaun Lind, Electronically Approved : 12/26/2018 10:40:41
== END | disposition home or self-care (01) ==
LOC: ECHO 08:45
PROVIDERS: ATTEND Internal Medicine Cardiovascular Disease
DX: I08.0 Rheumatic disorders of both mitral and aortic valves (principal); I25.10 Atherosclerotic heart disease of native coronary artery without angina pectoris
CPT/HCPCS: 93306

== ENCOUNTER 2019-01-14 06:14 | Day surgery (SDC) | payer MEDICARE, OTHER ==
[~2019-01-14] VITALS: Ht 158.8 cm; Wt 69.0 kg
[~2019-01-14 06:14] MED LIST changes: +CYAN50008 PO; +DOCU-109 PO
[2019-01-14] MEDS ORDERED: HYDROmorphone 2 MG/ML VIAL IV PRN (07:00)
[2019-01-14] MEDS ORDERED: MORPHINE SULFATE 2 MG/ML VIAL. IV PRN (07:00)
[2019-01-14] MEDS ORDERED: ONDANSETRON PF 4 MG/2 ML VIAL. IV PRN (07:00)
[2019-01-14] MEDS ORDERED: PROCHLORPERAZINE 10 MG/2 ML VIAL. IV PRN (07:00)
[2019-01-14] MEDS ORDERED: IV RINGERS,LACTATED 1000ML 1,000 ML IV SCH (07:00)
[2019-01-14] MEDS ORDERED: fentaNYL PF VIAL 100 MCG/2 ML VIAL IV PRN ×2 (07:00)
[2019-01-14] MEDS ORDERED: LIDOCAINE 1% PF 2 ML VIAL. ID PRN (07:00)
[2019-01-14] MEDS ORDERED: LIDOCAINE 2% PF 5 ML VIAL. ONE (07:10)
[2019-01-14] MEDS ORDERED: DEXAMETHASONE SOD PHOS 4 MG/ML VIAL ONE ×2 (07:10→08:50)
[2019-01-14] MEDS ORDERED: ONDANSETRON PF 4 MG/2 ML VIAL. ONE (07:10)
[2019-01-14] MEDS ORDERED: PROPOFOL 20 ML IV ONE (07:10)
[2019-01-14] MEDS ORDERED: ROCURONIUM 50 MG/5 ML VIAL. ONE (07:11)
[2019-01-14] MEDS ORDERED: MIDAZOLAM HCL/PF 2 MG/2 ML VIAL. ONE (07:11)
[2019-01-14] MEDS ORDERED: fentaNYL PF VIAL 100 MCG/2 ML VIAL ONE ×2 (07:11→09:09)
[2019-01-14] MEDS ORDERED: BUPIVACAINE MPF 0.5% 30 ML VIAL. ONE (07:15)
[2019-01-14] MEDS ORDERED: IOHEXOL 300 MG/ML 50 ML VIAL. ONE (07:15)
[2019-01-14] MEDS ORDERED: SURGICEL HEMOSTAT 4X8 EACH. ONE (07:15)
[2019-01-14] MEDS ORDERED: NEOSTIGMINE METHYLSULFATE 5 MG/5 ML SYRINGE. ONE (08:20)
[2019-01-14] MEDS ORDERED: GLYCOPYRROLATE 1 MG/5 ML VIAL. ONE (08:20)
[2019-01-14] MEDS ORDERED: SEVOFLURANE 61 TO 120 MINUTES. IH ONE (08:28)
--- NOTE | 2019-01-14 08:30 | RAD ---
Examination: CHOLANGIOGRAM INTRAOPERATIVE History: Pain Comparison/Correlation: None Findings: Fluoroscopy was utilized for 20 seconds. Intraoperative cholangiogram The exam was performed. A total of 3 images were provided for interpretation. Cholecystectomy clips are noted. Contrast is noted to distend the cystic duct remnant and common bile duct without a suspicious filling defect or intrahepatic biliary dilatation. There is a transverse linear apparent filling defect at the common hepatic duct level superiorly. This is of indeterminate interval significance and may be artifactual. Contrast is noted to pass into the duodenum. Incidental note is made of tubing at the midabdominal level. Postoperative findings of the lower lumbar spine on the right noted. Impression: No definite suspicious filling defects. No stricture. Electronically signed by: Antonio Brown MD (01/14/2019 8:27 AM) [facility]
--- NOTE | 2019-01-14 08:35 | PDOC4 ---
Operative Note Operative Note Operative Note: Preoperative Diagnosis: Buda dyskinesia Postoperative Diagnosis: Same Procedure: Laparoscopic cholecystectomy with intraoperative cholangiogram Surgeons: Fredy Sterile Instrument Technician: Gracie FINK Anesthesia: Gen. Estimated Blood Loss: 10 mL Specimen: Gallbladder to pathology Drains: None Complications: None Indications: The patient is a 68-year-old female who is referred with suspected biliary dyskinesia. Surgical treatment was offered by means of a laparoscopic cholecystectomy. The risks of surgery were discussed which include bleeding, i nfection, bile duct injury, bile leak, pain, the potential for additional surgeries or procedures. The patient understands and would like to proceed. Description: The patient was taken to the operating room and laid supine on the operating table. General anesthesia was performed. The abdomen was prepped with ChloraPrep and draped in a standard surgical fashion. A small infrau mbilical incision was made with a scalpel. The Veress needle was then inserted and a pneumoperitoneum was then created. A 5 mm trocar was then inserted and the laparoscope was introduced. In the upper midabdomen a 5 mm trocar was inserted and in the right upper quadrant two 2.3 mm mini lap graspers were inserted. The gallbladder was retracted cephalad. The cystic duct was dis sected free from surrounding tissues. One clip was placed on the duct near the gallbladder junction. An opening was made in the duct and a cholangiocatheter placed within and secured with a clip. Using contrast dye and fluoroscopy an intraoperative cholangiogram was performed that appeared unremarkable. The clip and catheter were then withdrawn. Three clips were placed on the cystic duct and it was divided. The cystic artery was then identified, dissected free, doubly clipped and divided as well. The gallbladder was then mobilized away from the liver with cautery. The umbilical 5 millimeter trocar was exchanged for an 11 millimeter trocar. The gallbladder was then placed in an endoscopic bag and extracted at the umbilical trocar site. The fascia there was closed with an 0 Vicryl suture. All blood and irrigation fluid was suctioned and hemostasis was good. The remaining ports were removed and the pneumoperitoneum was relieved. The skin incisions were injected with half percent Marcaine with epinephrine, and all were closed using 4-0 Monocryl suture. Steri-Strips and dressings were then applied. The patient tolerated the procedure well and was sent to the recovery room in stable condition. At the end of the case all counts were correct. DAVID GRIFFITH MD Jan 14, 2019 08:35
--- NOTE | 2019-01-14 08:37 | DISCH ---
DISCHARGE INSTRUCTIONS Condition on Discharge Condition on Discharge: Stable Activity After Discharge Activity Instructions for Disc: Activity as tolerated, Other, see below (no lifting over 20 lbs X 2 weeks) Driving Instructions after Dis: Other, see below (no driving while taking pain meds) Diet after Discharge Diet after Discharge: Regular Wound Incision Care Wound/Incision Care: Other, see below (may remove bandaids and shower tomorrow, steristrips fall off on their own) Follow-Up Follow up with: Dr Daniel in office in 2 weeks, call for appt [phone] Treatment/Equipment after DC Adaptive Equipment Issued: DAVID Frank MD Jan 14, 2019 08:37
[2019-01-14] MEDS ORDERED: ceFAZolin 2GM PREMIX 2 GM/50 ML BAG IV ONE (09:00)
[2019-01-14] MEDS ORDERED: HYDR-3164 PO (09:13)
[2019-01-14] MEDS ORDERED: HYDROcodone/APAP 5/325MG 1 TAB TABLET ONE (09:18)
[2019-01-14] MEDS ORDERED: HYDROcodone/APAP 5/325MG 1 TAB TABLET PO ONE (09:30)
[2019-01-14 09:45] VITALS: BP 128/78
--- NOTE | 2019-01-16 12:06 | PATHOLOGY ---
[facility] Accession Number: [id number] . 01 Material submitted: . gallbladder - GALLBLADDER AND CONTENTS . 01 Clinical history: . Biliary dyskinesia . 02 Diagnosis: Gallbladder, cholecystectomy: - Chronic cholecystitis. - Adenomatous polyps with pyloric metaplasia. - Rokitansky-Aschoff sinuses present. - No gallstones present. ([facility]; 01/16/2019) [facility] 01/16/2019 0840 Local . 02 Electronically signed: . Sascha Nathan MD, Pathologist NPI- [id number] . 01 Gross description: . Received in formalin labeled "Laundy, Latonya, gallbladder and contents," is an intact gallbladder measuring 5.9 x 2.2 x 1.6 cm in greatest dimensions. The serosal surface is wrinkled, light blue-green to focally hemorrhagic and partially adipose-covered in appearance. A defect is noted in the hepatic surface, measuring 0.3 x 0.1 cm that extends to within 1.8 cm of the infundibulum. Opening the specimen reveals a dark green mucosa measuring 0.1 cm in thickness, with a gallbladder wall thickness of up to 0.4 cm including attached adipose tissue. Multiple dark yellow-green possible polyps are noted on the mucosa, ranging from 0.2 to 0.3 cm in maximum dimension and extending to within 1.5 cm of the infundibulum; the largest of these possible polyps separate easily from the mucosa upon sectioning. Sectioning through the fundal aspect reveals a multicystic nodule measuring up to 0.8 cm on cut surface. Calculi are not present within the specimen or specimen container. Lining Setter sections of the infundibulum and body are submitted in cassette A1, to representatively include the hepatic surface defect and possible mucosal polyps. The fundal aspect multicystic nodule is submitted entirely in cassette A2. ([facility]; 01/15/2019) [facility]/XDC 01/15/2019 1018 Local . 02 Pathologist provided ICD-10: K81.1, K82.4 . 02 CPT . 597422 Specimen Comment: A courtesy copy of this report has been sent to [phone], [phone] Specimen Comment: [id number] Specimen Comment: Report sent to and Performed at: 01 [facility] [address] [facility] [place] [address], [place] [id number] MD Froylan Quach MD Phone: [phone] Performed at: 02 [facility] [address] [place], [place] [id number] MD Rao Lugo MD Phone: [phone]
== END 2019-01-14 10:13 | disposition home or self-care (01) ==
LOC: SURG 06:14
PROVIDERS: ATTEND Surgery
DX: K82.8 Other specified diseases of gallbladder (principal); K81.1 Chronic cholecystitis; E78.00 Pure hypercholesterolemia, unspecified; I25.2 Old myocardial infarction; K21.9 Gastro-esophageal reflux disease without esophagitis; Z86.73 Personal history of transient ischemic attack (TIA), and cerebral infarction without residual deficits; Z87.891 Personal history of nicotine dependence; Z96.652 Presence of left artificial knee joint; Z90.722 Acquired absence of ovaries, bilateral; Z90.710 Acquired absence of both cervix and uterus; Z90.49 Acquired absence of other specified parts of digestive tract
CPT/HCPCS: 47563; 74300; 88304; A7015; J0696; J1100; J2001; J2250; J2405; J2704; J2710; J3010; J3490; J7030; J7120; Q9967

== ENCOUNTER → 2019-03-22 | Outpatient (CLI) | payer MEDICARE, OTHER ==
[~2019-03-22] MED LIST changes: +HYDR-3164 PO
--- NOTE | 2019-03-22 14:26 | KCIC ---
Bone mineral density exam History: Hysterectomy Comparison: 12/19/2016 Findings: Bone mineral density examination utilizing DEXA was performed. Right forearm mineral density of 0.513 g/cm2 corresponds with a T score -1.0, Z score 0.9. There has been 1.4% increase. Left hip bone mineral density was 0.760 g/cm2 which corresponds with a T-score of -1.5, Z score -0.1. There has been -5.6% decrease. By World Congress on Osteoporosis criteria, a T score of 0 to-1 SD is considered to be within normal limits. A T score of -1 to -2.5 SD is considered osteopenia. A T score less than -2.5 SD is considered osteoporosis Impression: 1. There is osteopenia of the left hip. Right forearm bone mineral density is considered normal/borderline for osteopenia. Electronically signed by: Darron Martin MD (03/22/2019 2:23 PM) [facility]
== END | disposition home or self-care (01) ==
LOC: KCIC DEXA 12:24
PROVIDERS: ATTEND Family Medicine
DX: M85.88 Other specified disorders of bone density and structure, other site (principal); Z78.0 Asymptomatic menopausal state; Z90.710 Acquired absence of both cervix and uterus
CPT/HCPCS: 77080; 77081

== ENCOUNTER → 2019-03-26 | Outpatient (CLI) | payer MEDICARE, OTHER ==
--- NOTE | 2019-03-26 16:13 | KCIC ---
Bilateral digital screening mammograms with 3-D tomosynthesis: Reason for examination: Routine screening. Comparison is made to previous studies dated back to 04/04/2016. Bilateral mammograms in CC and oblique projections were obtained with 2-D imaging and 3-D tomosynthesis imaging on a Siemens Inspiration unit and reviewed on the workstation. Interpretation was made with the benefit of CAD. The skin and nipples show no abnormalities. No abnormal axillary lymph nodes are seen. Bilateral breast implants remain in place. There appears to be intracapsular rupture of the left breast implant. The breast parenchyma shows scattered fatty and fibroglandular density. (Breast density: Category B.) There continue to be small parenchymal densities bilaterally which are stable. There are no new dominant masses, suspicious calcifications or architectural distortion. Impression: Intracapsular rupture of the left breast implant. No evidence of malignancy. Recommend routine screening. BI-RAD Category 2: Benign. "Our facility is accredited by the [employer] Mammography Program." This patient's information has been entered into a reminder system for the patient to be notified with the results of her examination and a target date for the next mammogram. Electronically signed by: Rebecca Sosa MD (03/26/2019 4:09 PM) [id number]
== END | disposition home or self-care (01) ==
LOC: KCIC MAMMO 11:17
PROVIDERS: ATTEND Family Medicine
DX: Z12.31 Encounter for screening mammogram for malignant neoplasm of breast (principal); T85.898A Other specified complication of other internal prosthetic devices, implants and grafts, initial encounter; Z98.82 Breast implant status; Y83.8 Other surgical procedures as the cause of abnormal reaction of the patient, or of later complication, without mention of misadventure at the time of the procedure; Y92.89 Other specified places as the place of occurrence of the external cause
CPT/HCPCS: 77063; 77067

== ENCOUNTER → 2019-09-20 | Outpatient (CLI) | payer MEDICARE, OTHER ==
[~2019-09-20] MED LIST changes: +MULT-445 PO; -MULT1TAB52 PO; -OXYC-411 PO; +OXYC1TAB20 PO
--- NOTE | 2019-09-22 11:40 | RAD ---
MR#: [id number] Date of Study: 09/20/2019 Ordering Physician: ARIC AGUILA, Referring Physician: THELMA ROONEY Tech: RT Treva (R) (N) APPROVED REPORT Test Type: Exercise Stress Nurse/Tech: Joselyn Saunders RN Test Indications: Chest Pain Cardiac History: [place] 06/2018 (No Cath), See EMR. Medications: ASA 81mg QD, See EMR. Medical History: Smoker, CVA, See EMR. Resting ECG: SB Resting Heart Rate: 55 bpm Resting Blood Pressure: 128/77mmHg Pretest Chest Pain: No chest pain Nurse/Tech Notes Lungs with crackles in the left upper lobe; CTA throughout other lobes. Heart tones regular. Consent: The procedure was explained to the patient in lay terms. Informed consent was witnessed. Landon eout was entered into [employer]. History and Stress Test performed by RT Rosa (R) (N) Stress Symptoms No chest pain or symptoms. POST EXERCISE Reason for Termination: Reached target heart rate Target HR: Yes Max HR: 132 bpm 102% of Maximum Predicted HR: 129 bpm Exercise duration: 8:12 min:sec, 3 Stage Exercise capacity: 10METs Max Blood Pressure: 147/74mmHg Blood Pressure response to exercise: Normal blood pressure response during stress. Heart Rate response to exercise: WNL Chest Pain: No. Arrhythmia: No. ST Change: No. INTERPRETATION Stress EKG Conclusion: No evidence of stress induced EKG changes. Imaging Protocol IMAGE PROTOCOL: Rest Tc-99m/stress Tc-99m 1 day Rest: Stress: Viability: Radiopharm.Tc99m GbecghtkwWz27u Sestamibi Bhze99tRv 33mCi Duration 13.5min. 13.5min. Img Date 09/20/2019 09/20/2019 Inj-Img [id number]. 60min. Rest Admin Site:IV - Left AntecubitalAdministrator:RT Rosa (R)(N) Stress Admin Site: IV - Left AntecubitalAdministrator: RT Rosa (Humaira)(N) STRESS DATA End Diast. Vol.88.0mlLVEDV index BSA55.0ml End Syst. Vol.26.0mlLVESV index BSA16.0ml Myocardial Rruw209.0gEject. Elsyhkcn20.0% Stress Scores Regional WT0.00Summed WT0.00 Regional WM0.00Summed WM0.00 The rest and stress images show normal perfusion, normal contraction and thickening. LV Perf. Quant 17 Seg. SSS1.00 17 Seg. SRS3.00 17 Seg. SDS0.00 Stress Defect Extent (% LAD)0.00Rest Defect Extent (% LAD)8.80Rev. Defect Extent (% LAD)0.00 Stress Defect Extent (% LCX) 17.50Rest Defect Extent (% LCX)27.50Rev. Defect Extent (% LCX)12.50 Stress Defect Extent (% RCA)0.00Rest Defect Extent (% RCA)0.00Rev. Defect Extent (% RCA)0.00 Stress Defect Extent (% ANDREW)3.00Rest Defect Extent (% ANDREW)7.80Rev. Defect Extent (% ANDREW)2.20 Other Information Quality:Good Risk Assessment: Low Risk Conclusion 1. No evidence of EKG changes with stress testing. 2. Normal perfusion at stress/rest. 3. Low risk study. 4. EF > 60%. Signed by : Aric Aguila, Electronically Approved : 09/22/2019 11:40:08
== END | disposition home or self-care (01) ==
LOC: NM 08:02
PROVIDERS: ATTEND Internal Medicine Cardiovascular Disease
DX: I25.10 Atherosclerotic heart disease of native coronary artery without angina pectoris (principal); I25.2 Old myocardial infarction
CPT/HCPCS: 78452; 93017; A9500

== ENCOUNTER → 2020-04-10 | Outpatient (CLI) | payer MEDICARE, OTHER ==
--- NOTE | 2020-04-10 14:01 | KCIC ---
EXAMINATION: MRI RIGHT SHOULDER WITHOUT IV CONTRAST CLINICAL HISTORY: Right shoulder pain and limited range of motion x3 weeks, concerning for rotator cu ff tear. History of unspecified right shoulder surgery TECHNIQUE: Multiplanar multisequential images obtained through the shoulder without intravenous contr ast. COMPARISON: None FINDINGS: TENDONS: 2 tendon anchors in the anterior greater tuberosity, tendon anchor in the proximal intertube rcular groove, and multifocal susceptibility artifact in the soft tissues surrounding the shoulder, r elated to prior rotator cuff repair and biceps tenodesis. - Supraspinatus: Near full-thickness tearing throughout the width of the tendon. - Infraspinatus: Full-thickness full width tear and retraction to the medial humeral head. - Subscapularis: Large full-thickness tear in the superior half the tendon. - Teres Minor: Intact. - Biceps Tendon: Prior tenodesis. MUSCLES: Mild fatty replacement in the supraspinatus muscle. Mild fatty replacement and atrophy in th e infraspinatus muscle. Moderate fatty replacement and atrophy in the superior subscapularis muscle. Muscle bulk and signal maintained in the teres minor and deltoid muscles. LABRUM: Circumferential labral degeneration without discrete tear. GLENOHUMERAL JOINT: - Joint Fluid: Moderate joint effusion extending into the subacromial/subdeltoid bursa. - Cartilage: No full-thickness chondral defect visualized. ACROMIOCLAVICULAR JOINT: Distal clavicle resection. BONES/MARROW: No evidence of acute fracture or suspicious marrow replacing process. OTHER: No other significant abnormality identified. IMPRESSION: Full-thickness infraspinatus and subscapularis tendon tears and near full-thickness supraspinatus ten don tear with muscle atrophy as described. Postoperative findings as described. Electronically signed by: Juan Sanchez DO (04/10/2020 1:58 PM) [id number]
== END ==
LOC: KCIC MRI 08:16
PROVIDERS: ATTEND Physician Assistant
DX: M25.411 Effusion, right shoulder (principal); M75.101 Unspecified rotator cuff tear or rupture of right shoulder, not specified as traumatic
CPT/HCPCS: 73221

== ENCOUNTER → 2020-04-10 | Outpatient (CLI) | payer MEDICARE, OTHER ==
--- NOTE | 2020-04-10 10:01 | KCIC ---
Bilateral digital screening mammograms with 3-D tomosynthesis: Reason for examination: Routine screening. Comparison is made to previous studies dated back to 04/05/2017. Bilateral mammograms in CC and oblique projections were obtained with 2-D imaging and 3-D tomosynthes is imaging on a Siemens Inspiration unit and reviewed on the workstation. Interpretation was made casandra bell the benefit of CAD. The skin and nipples show no abnormalities. No abnormal axillary lymph nodes are seen. Bilateral toñito st implants remain present. There does appear to be intracapsular rupture of the left breast implant which appears to be stable. The breast parenchyma shows scattered fatty and fibroglandular density. ( Breast density: Category B.) There continue to be small nodular parenchymal densities bilaterally whi ch are stable. There also appear to be small intramammary lymph nodes. There are no new dominant mass es, suspicious calcifications or architectural distortion. Impression: No evidence of malignancy. Recommend routine screening. BI-RAD Category 2: Benign. "Our facility is accredited by the [employer] Mammography Program." This patient's information has been entered into a reminder system for the patient to be notified wit h the results of her examination and a target date for the next mammogram. Electronically signed by: Rebecca Sosa MD (04/10/2020 9:59 AM) [email or web address]
== END ==
LOC: KCIC MAMMO 08:30
PROVIDERS: ATTEND Family Medicine
DX: Z12.31 Encounter for screening mammogram for malignant neoplasm of breast (principal)
CPT/HCPCS: 77063; 77067

== ENCOUNTER → 2020-04-21 | Outpatient (CLI) | payer MEDICARE, OTHER ==
--- NOTE | 2020-04-21 16:50 | KCIC ---
MR LUMBAR SPINE [id number] Date: 04/21/2020 1:18 PM Indication: LBP w/Lt radiculitis. Previous surgery 2013. Comparison: None. Technique: Multi-planar multi-weighted magnetic resonance imaging of the lumbar spine was performed w ithout intravenous contrast using the standard lumbar spine protocol. FINDINGS: Postsurgical changes of posterior instrumentation at L2-3 on the right. Left convex lumbar curvature. Trace retrolisthesis at L1-2 and L2-3. 4 mm anterolisthesis at L4-5. No acute fracture. Moderate multilevel degenerative disc desiccation and disc height loss. Multilevel t race degenerative endplate edema. The conus terminates at a normal level. No abnormal signal is seen within the visualized distal spina l cord. No clumping of intrathecal nerve roots. No soft tissue abnormality in the visualized abdomen or pelvis. T12-L1: No disc bulge. Moderate facet arthropathy. No significant spinal stenosis or neural foraminal narrowing. L1-L2: Disc bulge. Moderate facet arthropathy. Mild spinal stenosis. Mild bilateral neural foraminal narrowing. L2-L3: Right hemilaminectomy. No spinal canal stenosis. Moderate bilateral neural foraminal narrowing . L3-L4: Disc bulge. Moderate facet arthropathy. Ligamentum flavum thickening. Moderate to severe spina l stenosis. Moderate right and mild left lateral recess narrowing. Moderate to severe right and moder ate left neural foraminal narrowing. L4-L5: Disc bulge. Severe facet arthropathy. Ligamentum flavum thickening. Severe spinal stenosis and lateral recess. Mild to moderate right and moderate left neural foraminal narrowing. L5: 10 x 7 mm synovial cyst projects into the left aspect of the spinal canal, compressing the left L 5 nerve root as it enters the L5-S1 neural foramen as well as displacing the remaining descending lef t-sided nerve roots. Moderate spinal canal stenosis. L5-S1: Disc bulge with left far lateral protrusion which abuts the exiting left L5 nerve root. Modera te facet arthropathy. Ligamentum flavum thickening. Mild to moderate spinal stenosis and left greater than right lateral recess narrowing. Mild right and moderate to severe left neural foraminal narrowi ng. IMPRESSION: Severe spinal canal stenosis at L4-5, moderate to severe at L3-4. Degenerative changes at the remaini ng levels as detailed above. Electronically signed by: Darron Hawley MD (04/21/2020 4:47 PM) [id number]
== END ==
LOC: KCIC MRI 13:06
PROVIDERS: ATTEND Anesthesiology Pain Medicine
DX: M47.26 Other spondylosis with radiculopathy, lumbar region (principal); M48.061 Spinal stenosis, lumbar region without neurogenic claudication
CPT/HCPCS: 72148

== ENCOUNTER → 2020-07-28 | Outpatient (CLI) | payer MEDICARE, OTHER ==
[~2020-07-28] MED LIST changes: -CYAN50008 PO; +CYAN50009 PO
--- NOTE | 2020-07-28 13:42 | CARD ---
MR#: [id number] Date of Study: 07/28/2020 Ordering Physician: ARIC DWYER, Referring Physician: ARIC DWYER, Tech: APPROVED REPORT Reason for procedure: Prior history of CVA, new onset palpitations and near syncope Procedure details: After proper informed consent the left chest was prepped and draped in usual sterile fashion. 20 mL of 1% local lidocaine anesthesia was placed in the left parasternal space. Next, a 0.5 inch incision was made and a subcutaneous tunnel was created. Next a [employer] bio monitor 3 implantable loop rec order with serial #[id number] was delivered with the delivery device. The incision was then closed wit h a 2-0 absorbable suture. Steri-Strips were placed and sterile dressing was used to cover the incis ion. No acute complications are noted. <Conclusion> 1. Successful insertion of a [employer]k loop recorder. Signed by : Aric Dwyer, Electronically Approved : 07/28/2020 11:50:55
== END | disposition home or self-care (01) ==
LOC: LINQ 10:34
PROVIDERS: ATTEND Internal Medicine Cardiovascular Disease
DX: R55 Syncope and collapse (principal); R00.2 Palpitations; Z86.73 Personal history of transient ischemic attack (TIA), and cerebral infarction without residual deficits; E78.00 Pure hypercholesterolemia, unspecified; K21.9 Gastro-esophageal reflux disease without esophagitis; M19.90 Unspecified osteoarthritis, unspecified site; F17.210 Nicotine dependence, cigarettes, uncomplicated; Z79.899 Other long term (current) drug therapy; Z98.890 Other specified postprocedural states; Z90.710 Acquired absence of both cervix and uterus; Z72.89 Other problems related to lifestyle; Z88.8 Allergy status to other drugs, medicaments and biological substances
CPT/HCPCS: 33285; C1764

== ENCOUNTER → 2021-03-16 | Outpatient (CLI) | payer MEDICARE, OTHER ==
--- NOTE | 2021-03-21 09:06 | RAD ---
MR#: [id number] Date of Study: 03/16/2021 Ordering Physician: ARIC DWYER, Referring Physician: ARIC DWYER, Tech: Marvin Camacho MBA, RDMS, RVT, RDCS, RTR APPROVED REPORT Patient Location: OUT-PATIENT Laterality:Bilateral Indications CVA/TIA: Doppler Spectral Velocity Analysis Right Left pCCA 76/17 cm/spCCA 67/23 cm/s mCCA 75/22 cm/smCCA 77/26 cm/s dCCA 64/25 cm/sdCCA 69/30 cm/s Bulb 54/18 cm/sBulb 57/23 cm/s ECA 60/ cm/sECA 74/ cm/s pICA 56/23 cm/spICA 43/19 cm/s Sharron 53/22 cm/smICA 55/24 cm/s dICA 46/19 cm/sdICA 69/29 cm/s Vert. 23/ cm/sVert. 27/ cm/s Subcl. 77/ cm/sSubcl. 97/ cm/s ICA/CCA 0.74ICA/CCA 1.03 Findings Grayscale images of extracranial carotid vessels showed mild diffuse atherosclerosis. Spectral wavef orm and color duplex analysis showed normal velocities bilaterally. The ICA to CCA ratio were within normal limits bilaterally. The vertebral arteries showed antegrade flow with normal velocities. No significant carotid artery stenosis was noted. Critical Notification Critical Value: No <Conclusion> Carotid arterial duplex scan did not show any significant carotid artery stenosis. Signed by : Rashaun Lind, Electronically Approved : 03/21/2021 09:06:00
== END ==
LOC: US 14:39
PROVIDERS: ATTEND Internal Medicine Cardiovascular Disease
DX: I65.23 Occlusion and stenosis of bilateral carotid arteries (principal); Z86.73 Personal history of transient ischemic attack (TIA), and cerebral infarction without residual deficits
CPT/HCPCS: 93880

== ENCOUNTER → 2021-05-14 | Outpatient (CLI) | payer MEDICARE, OTHER ==
[~2021-05-14] MED LIST changes: -OMEP20TA8 PO; +OMEP20TA91 PO
--- NOTE | 2021-05-17 12:26 | KCIC ---
Bilateral digital screening mammograms with 3-D tomosynthesis: Reason for examination: Routine screening. Comparison is made to previous studies dated back to 04/06/2018. Bilateral mammograms in CC and oblique projections were obtained with 2-D imaging and 3-D tomosynthes is imaging on a Siemens Inspiration unit and reviewed on the workstation. CAD was unavailable for thi s examination. The skin and nipples show no abnormalities. No abnormal axillary lymph nodes are seen. The breast par enchyma shows scattered fatty and fibroglandular density. (Breast density: Category B.) There continu e to be small nodular parenchymal densities bilaterally which are stable. There are no new dominant m asses, suspicious calcifications or architectural distortion. Impression: No evidence of malignancy. Recommend routine screening. BI-RAD Category 2: Benign. "Our facility is accredited by the [employer] Mammography [employer]." This patient's information has been entered into a reminder system for the patient to be notified wit h the results of her examination and a target date for the next mammogram. Electronically signed by: Rebecca Sosa MD (05/17/2021 12:23 PM) [email or web address]
== END ==
LOC: KCIC MAMMO 09:23
PROVIDERS: ATTEND Family Medicine
DX: Z12.31 Encounter for screening mammogram for malignant neoplasm of breast (principal)
CPT/HCPCS: 77063; 77067